=== PATIENT | female | born 1940 | race Two or more races ===

== ENCOUNTER 2020-04-11 16:07 | Inpatient (IN) | payer OTHER ==
[~2020-04-11] VITALS: Ht 167.6 cm; Wt 97.2 kg
[2020-04-11 18:00] LABS: Basophils # (auto) 0 10 ^3/uL (0-0.2); Eosinophils # (auto) 0 10 ^3/uL (0-0.8); Eosinophils % (auto) 0.1 % (0.0-7.0); Hemoglobin 8.2 g/dL (12.2-16.2); Lymphocytes # (auto) 0.3 10 ^3/uL (0.4-5.4); White Blood Cell 7.8 10^3/uL (4.4-10.8)
[2020-04-11 18:01] LABS: Basophils % (auto) 0.2 % (0.0-2.0); Hematocrit 24.8 % (36.0-46.0); Lymphocytes % (auto) 4.4 % (10.0-50.0); Mean Corpuscular Hemoglobin 31.2 pg (28.0-32.0); Mean Corpuscular Volume 94.5 fL (80.0-100.0); Monocytes # (auto) 0.4 10 ^3/uL (0-1.3); Monocytes % (auto) 5.5 % (0.0-12.0); Neutrophils % (auto) 89.8 % (37.0-80.0); Nucleated Red Blood Cells % 0.3 %; Platelet Count (auto) 131 10^3/uL (140-450); Red Blood Cells 2.63 10^6/uL (4.0-5.20); Red Cell Distribution Width 15.8 % (11.8-14.3)
[2020-04-11] MEDS ORDERED: NOREPINEPHRINE 8 MG/250ML KIT 250 ML IV ONE (18:02)
[2020-04-11 18:14] LABS: INR 1.5 (0.9-1.15); Partial Thromboplastin Time 27.3 sec (23.64-32.05)
[2020-04-11 18:17] LABS: Lactic Acid w/Reflex 3.9 mmol/L (0.4-2.0)
[2020-04-11 18:19] LABS: Albumin 2.3 g/dL (3.4-5.0); Anion Gap 10 (5-15); Blood Alcohol < 3.0 mg/dL (0-5); Blood Urea Nitrogen 36 mg/dL (7-18); Calcium 7.2 mg/dL (8.5-10.1); Carbon Dioxide 29 mmol/L (21-32); Chloride 99 mmol/L (98-107); Glucose 110 mg/dL (74-106); Potassium 4.8 mmol/L (3.5-5.1); Sodium 138 mmol/L (136-145)
[2020-04-11] MEDS: NOREPINEPHRINE 8 MG/250ML KIT 250 ML IV SCH (18:20)
[2020-04-11 18:28] LABS: Alanine Aminotransferase 98 U/L (13-56); Alkaline Phosphatase 61 U/L (45-117); Aspartate Aminotransferase 536 U/L (15-37); Bilirubin, Total 0.6 mg/dL (0.2-1.0); CRP High Sensitivity 4.85 mg/dL (< 0.3); GFR African American 16 mL/min; GFR Non-African American 13 mL/min; Lactate Dehydrogenase 553 U/L (84-246); Total Protein 5.5 g/dL (6.4-8.2)
[2020-04-11] MEDS ORDERED: VANCOMYCIN 1GM/250ML 250 ML IV ONE (19:30)
[2020-04-11] MEDS ORDERED: PIPERACILLIN-TAZOB 3.375GM 100 ML IV ONE (19:30)
[2020-04-11] MEDS ORDERED: HEPARIN SODIUM (PORCINE) 5000 UNITS/ML 1ML VIAL IV ONE (19:45)
[2020-04-11] MEDS ORDERED: NITROGLYCERIN 0.4 MG SL TAB SL PRN (20:00)
[2020-04-11] MEDS ORDERED: MORPHINE SULF INJ 2 MG/ML SYRINGE 1ML IV PRN (20:00)
[2020-04-11] MEDS: HEPARIN DRIP/D5W 100UNITS/ML 250 ML IV SCH (21:23)
[2020-04-11] MEDS: SODIUM CHLOR 0.9% PF (SALINE LOCK) 10ML VIAL/SYR IV SCH (22:06)
[2020-04-11] MEDS: ATORVASTATIN 20 MG TAB PO SCH (22:12)
[2020-04-12 00:35] LABS: Urine Bacteria FEW /hpf (None Seen); Urine Blood 3+ /uL (Negative); Urine Budding Yeast FEW /hpf (None Seen); Urine Hyaline Cast FEW /lpf (0 - 2); Urine Specific Gravity 1.013 (1.001-1.035); Urine WBC 393 /hpf (0 - 5); Urine WBC Clumps PRESENT /hpf (None Seen)
[2020-04-12 03:17] LABS: INR 1.42 (0.9-1.15)
[2020-04-12 03:24] LABS: Partial Thromboplastin Time 122.9 sec (23.64-32.05)
[2020-04-12 05:54] LABS: INR 1.35 (0.9-1.15); Partial Thromboplastin Time 38.5 sec (23.64-32.05)
[2020-04-12] MEDS: SODIUM CHLOR 0.9% PF (SALINE LOCK) 10ML VIAL/SYR IV SCH ×3 (06:10→22:32)
[2020-04-12] MEDS ORDERED: FAMOTIDINE INJECTION 40 MG in SODIUM CHL 0.9% 100 ML IV SCH (10:00)
[2020-04-12] MEDS ORDERED: FAMOTIDINE (10MG/ML) 2ML VL IV SCH (10:00)
[2020-04-12] MEDS ORDERED: CLOPIDOGREL BISULFATE 75 MG TAB PO SCH (10:00)
[2020-04-12] MEDS ORDERED: ASPirin 81 mg TAB PO SCH (10:00)
[2020-04-12] MEDS: FAMOTIDINE (10MG/ML) 2ML VL IV SCH (10:33)
[2020-04-12] MEDS ORDERED: CLOPIDOGREL BISULFATE 75 MG TAB PO STA (10:53)
[2020-04-12] MEDS ORDERED: CLOPIDOGREL BISULFATE 75 MG TAB ONE (11:15)
[2020-04-12] MEDS ORDERED: cefTRIAXone 1GM/50ML D5W 50 ML IV ONE (11:15)
[2020-04-12] MEDS ORDERED: traMADol HCL 50 MG TAB ONE (11:16)
[2020-04-12] MEDS: traMADol HCL 50 MG TAB PO PRN (11:50)
[2020-04-12 13:51] LABS: Basophils # (auto) 0 10 ^3/uL (0-0.2); Basophils % (auto) 0.3 % (0.0-2.0); Eosinophils # (auto) 0.1 10 ^3/uL (0-0.8); Eosinophils % (auto) 1.1 % (0.0-7.0); Hematocrit 26.5 % (36.0-46.0); Hemoglobin 8.7 g/dL (12.2-16.2); Lymphocytes # (auto) 0.5 10 ^3/uL (0.4-5.4); Lymphocytes % (auto) 4.5 % (10.0-50.0); Mean Corpuscular Hemoglobin 31.3 pg (28.0-32.0); Mean Corpuscular Hgb Conc. 32.7 g/dL (32.0-36.0); Mean Corpuscular Volume 95.7 fL (80.0-100.0); Monocytes # (auto) 0.7 10 ^3/uL (0-1.3); Monocytes % (auto) 6.3 % (0.0-12.0); Neutrophils # (auto) 9.2 10 ^3/uL (1.6-8.6); Neutrophils % (auto) 87.8 % (37.0-80.0); Nucleated Red Blood Cells % 0.5 %; Platelet Count (auto) 178 10^3/uL (140-450); Red Blood Cells 2.77 10^6/uL (4.0-5.20); Red Cell Distribution Width 16.5 % (11.8-14.3); White Blood Cell 10.4 10^3/uL (4.4-10.8)
[2020-04-12 14:06] LABS: Albumin 2.3 g/dL (3.4-5.0); Calcium 7.3 mg/dL (8.5-10.1); INR 1.33 (0.9-1.15); Partial Thromboplastin Time 26.4 sec (23.64-32.05); Potassium 4.2 mmol/L (3.5-5.1)
[2020-04-12 14:14] LABS: BUN/Creatinine Ratio 11.9; Bilirubin, Total 0.4 mg/dL (0.2-1.0); Total Protein 5.6 g/dL (6.4-8.2)
[2020-04-12] MEDS ORDERED: HEPARIN SODIUM (PORCINE) 5000 UNITS/ML 1ML VIAL ONE (14:22)
[2020-04-12] MEDS ORDERED: HEPARIN SODIUM (PORCINE) 5000 UNITS/ML 1ML VIAL IV ONE (14:30)
[2020-04-12] MEDS: HEPARIN DRIP/D5W 100UNITS/ML 250 ML IV SCH (14:33)
[2020-04-12] MEDS ORDERED: HEPARIN DRIP/D5W 100UNITS/ML 250 ML IV SCH (14:45)
[2020-04-12] MEDS: NOREPINEPHRINE 8 MG/250ML KIT 250 ML IV SCH (17:59)
[2020-04-12] MEDS: ATORVASTATIN 20 MG TAB PO SCH (22:32)
[2020-04-13 00:29] LABS: INR 1.28 (0.9-1.15)
[2020-04-13 00:38] LABS: Partial Thromboplastin Time 71.5 sec (23.64-32.05)
[2020-04-13] MEDS: NOREPINEPHRINE 8 MG/250ML KIT 250 ML IV SCH (01:45)
[2020-04-13] MEDS: traMADol HCL 50 MG TAB PO PRN (04:22)
[2020-04-13] MEDS ORDERED: OMEPRAZOLE 20MG/10ML ORAL SUSP GT ONE (04:30)
[2020-04-13 05:41] LABS: Hematocrit 29.8 % (36.0-46.0); Hemoglobin 9.6 g/dL (12.2-16.2); Mean Corpuscular Hemoglobin 30.7 pg (28.0-32.0); Mean Corpuscular Hgb Conc. 32.1 g/dL (32.0-36.0); Mean Corpuscular Volume 95.9 fL (80.0-100.0); Platelet Count (auto) 162 10^3/uL (140-450); Red Blood Cells 3.11 10^6/uL (4.0-5.20); Red Cell Distribution Width 16.8 % (11.8-14.3)
[2020-04-13 05:49] LABS: Basophils % (manual) 0 (0.0-2.0); Blast Cells 0; Eosinophils % (manual) 0 (0-7); Myelocytes % 0; Promyelocytes % 0; Reactive Lymphocytes 0
[2020-04-13 05:55] LABS: Potassium 4.3 mmol/L (3.5-5.1)
[2020-04-13 05:56] LABS: INR 1.22 (0.9-1.15); Partial Thromboplastin Time 57.3 sec (23.64-32.05)
[2020-04-13 05:59] LABS: Albumin 2.6 g/dL (3.4-5.0); BUN/Creatinine Ratio 10.8; Calcium 7.6 mg/dL (8.5-10.1)
[2020-04-13] MEDS: SODIUM CHLOR 0.9% PF (SALINE LOCK) 10ML VIAL/SYR IV SCH ×3 (06:00→21:27)
[2020-04-13 06:01] LABS: Bilirubin, Total 0.6 mg/dL (0.2-1.0); Total Protein 6.2 g/dL (6.4-8.2)
[2020-04-13 06:29] LABS: Band Neutrophils % (manual) 7; Lymphocytes % (manual) 7 (10.0-50.0); Metamyelocytes % 1; Monocytes % (manual) 1 (0-12)
--- NOTE | 2020-04-13 08:54 | NUR ---
WOUND CARE NOTE: ORDERED [facility] VCP 500 AIR BED FOR PATIENT. PATIENT TO BE PLACED, PENDING DELIVERY. PATIENT NOTED TO HAVE SACRAL WOUND UPON ADMIT. WOUND PHOTO TAKEN AT THAT TIME BY BEDSIDE NURSE FOR REFERENCE. WILL SEE PATIENT FOR SKIN INTEGRITY LATER THIS AM.
[2020-04-13] MEDS ORDERED: ASPirin 81 mg TAB PO SCH (10:00)
[2020-04-13] MEDS: FAMOTIDINE (10MG/ML) 2ML VL IV SCH (11:15)
[2020-04-13] MEDS: cefTRIAXone 1GM/50ML D5W 50 ML IV SCH (11:15)
[2020-04-13] MEDS: CLOPIDOGREL BISULFATE 75 MG TAB PO SCH (11:47)
[2020-04-13 12:04] LABS: Basophils # (auto) 0 10 ^3/uL (0-0.2); Eosinophils # (auto) 0.1 10 ^3/uL (0-0.8); Hemoglobin 8.4 g/dL (12.2-16.2); Lymphocytes # (auto) 0.4 10 ^3/uL (0.4-5.4); Neutrophils # (auto) 9.2 10 ^3/uL (1.6-8.6); White Blood Cell 10.2 10^3/uL (4.4-10.8)
[2020-04-13 12:07] LABS: Basophils % (auto) 0.2 % (0.0-2.0); Eosinophils % (auto) 1.1 % (0.0-7.0); Hematocrit 25.6 % (36.0-46.0); Mean Corpuscular Hemoglobin 31.3 pg (28.0-32.0); Mean Corpuscular Hgb Conc. 32.9 g/dL (32.0-36.0); Mean Corpuscular Volume 95.3 fL (80.0-100.0); Monocytes # (auto) 0.4 10 ^3/uL (0-1.3); Monocytes % (auto) 4.4 % (0.0-12.0); Neutrophils % (auto) 90.3 % (37.0-80.0); Nucleated Red Blood Cells % 0.4 %; Platelet Count (auto) 135 10^3/uL (140-450); Red Blood Cells 2.68 10^6/uL (4.0-5.20); Red Cell Distribution Width 16.6 % (11.8-14.3)
--- NOTE | 2020-04-13 12:20 | NUR ---
WOUND CARE NOTE: IN TO SEE PATIENT AT THIS TIME PER WOUND CARE CONSULT REQUEST. PATIENT RECENTLY ADMITTED TO [facility] WITH DIAGNOSIS OF RESPIRATORY FAILURE. SHE WAS NOTED TO HAVE A WOUND TO SACRUM, WOUND PHOTO TAKEN BY BEDSIDE NURSE FOR REFERENCE. PATIENT IS IN ER BED 16. SHE IS AWAKE, ALERT, CONFUSED. SHE IS MAX ASSIST FOR HER ADL'S, ASSESSED AT 11 FOR HER DSEIREE SCORE, CURRENTLY. PATIENT TURNED TO THE RIGHT SIDE. SHE IS NOTED TO HAVE A STAGE 3 PRESSURE INJURY TO INTRAGLUTEAL FOLD OF SACRUM, WITH MASD TO BILATERAL BUTTOCKS, PERINEUM. APPLIED MOISTURE BARRIER CREAM TO MASD, APPLIED THERAHONEY, OPTIFOAM GENTLE SACRAL DRESSING TO WOUND. BILATERAL HEELS ARE RED, BUT BLANCHING. SHE WOULD BENEFIT FROM SABAS BOOTS TO OFFLOAD PRESSURE AT THIS TIME. PATIENT REPOSITIONED ONTO RIGHT SIDE, REDISTRIBUTING PRESSURE POINTS WITH PILLOWS. RECOMMEND: FREQUENT TURN SCHEDULE Q 2 HOURS, PRN CONDITION PERMITS, WITH PRESSURE REDISTRIBUTION UTILIZING PILLOWS/WEDGES, SABAS BOOTS, SPECIALTY AIR MATTRESS, DAILY/PRN DRESSING CHANGE TO SACRAL WOUND, BID/PRN APPLICATIONS WITH MOISTURE BARRIER CREAM TO MASD OF PERINEUM/BILATERAL BUTTOCKS, DIETARY CONSULT, CONTINUED MONITORING BY WOUND CARE TEAM. Addendum: 04/13/20 at 1936 by Peyton Jay RN Amended: Links added.
[2020-04-13 12:22] LABS: Albumin 2.2 g/dL (3.4-5.0); Calcium 7.2 mg/dL (8.5-10.1); Potassium 4.4 mmol/L (3.5-5.1)
[2020-04-13 12:26] LABS: BUN/Creatinine Ratio 11.1; Bilirubin, Total 0.4 mg/dL (0.2-1.0); Total Protein 5.5 g/dL (6.4-8.2)
[2020-04-13 12:53] LABS: INR 1.23 (0.9-1.15); Partial Thromboplastin Time 54.5 sec (23.64-32.05)
[2020-04-13] MEDS: HEPARIN DRIP/D5W 100UNITS/ML 250 ML IV SCH (13:00)
[2020-04-13] MEDS: FLUCONAZOLE 200MG/100ML 100 ML IV SCH ×2 (14:39→15:44)
--- NOTE | 2020-04-13 19:00 | NUR ---
Telemetry admit from ER DIANA GARCIA admitted to Telemetry unit after SBAR received. Patient oriented to BERNABE CANCINO, RN primary RN, unit, room, bed 293B, and unit policies regarding patient care and visiting hours. Patient now on continuous telemetry monitoring, tele box # 75 and telemetry reading on arrival to unit is sinus rhythm. Patient placed on bedside oxygen 2 LPM, weighed by bedscale and encouraged to call if they need something. All questions and concerns addressed, patient verbalized understanding. Patient is confused and needs continuous re-orientation. Call to patients daughter to update on plan of care.
--- NOTE | 2020-04-13 19:45 | NUR ---
Opening Shift Note Assumed care of patient, asleep at this time, respirations even and unlabored. No S/S of pain. Bed in lowest and locked position, call light within reach, will continue to monitor
[2020-04-13 19:58] LABS: INR 1.19 (0.9-1.15)
[2020-04-13 20:00] VITALS: BP 120/56
--- NOTE | 2020-04-13 20:17 | NUR ---
APTT Received a critical APTT of 73.7. No changes in Heparin drip, maintained at 12 ml/hr per protocol, will continue to monitor
[2020-04-13 20:19] LABS: Partial Thromboplastin Time 73.7 sec (23.64-32.05)
--- NOTE | 2020-04-13 20:35 | NUR ---
Spoke to patient's daughter Peyton and updated on patient's status
[2020-04-13] MEDS: ATORVASTATIN 20 MG TAB PO SCH (21:27)
[2020-04-13 22:00] VITALS: BP 120/56
[2020-04-13 22:37] VITALS: BP 120/56
[2020-04-14 02:07] LABS: INR 1.18 (0.9-1.15)
--- NOTE | 2020-04-14 02:37 | NUR ---
APTT Received a critical APTT of 80.1. Decreased Heparin drip to 10 ml/hr per protocol, will continue to monitor
[2020-04-14 02:40] LABS: Partial Thromboplastin Time 80.1 sec (23.64-32.05)
--- NOTE | 2020-04-14 04:00 | NUR ---
Patient woke up confused and pulled out IV and dressing on left chest pacemaker. Reoriented to time, place and situation and instructed her on POC. Patient unable to comprehend at this time and continue to pull out ruiz as well. Placed mittens on both hands but patient started to become aggressive. Removed mittens at this time and able to calm patient down. SHANNON Carranza made aware of patient's situation and the possible need of a sitter. DENNISE Chow stayed with the patient for now, will closely monitor patient.
--- NOTE | 2020-04-14 06:06 | NUR ---
MRSA swab done per protocol, sent to lab
[2020-04-14] MEDS: SODIUM CHLOR 0.9% PF (SALINE LOCK) 10ML VIAL/SYR IV SCH ×3 (06:11→21:14)
[2020-04-14 06:27] VITALS: BP 124/65
[2020-04-14] MEDS ORDERED: SODIUM CHL 0.9% 1000 ML BAG XX ONE (07:00)
--- NOTE | 2020-04-14 07:30 | NUR ---
Opening Shift Note Assumed care of patient, awake and alert but confused, requiring frequent re-orientation to place, situation and time. No S/S of distress/SOB or pain on 2 LPM via nasal cannula, per report patient desaturates on room air. Instructed on POC and to call for assist PRN, will continue to monitor for changes Q1hr and PRN. Bed in low and locked position, rails up x2 no-slip socks on. Repositioned for skin integrity and comfort. Sitter at bedside for safety, patient is actively attempting to remove all lines and dressings overnight, will continue to monitor activity.
--- NOTE | 2020-04-14 07:55 | NUR ---
DIALYSIS NURSE AT BEDSIDE
[2020-04-14 08:32] LABS: Hematocrit 24.7 % (36.0-46.0); Hemoglobin 8.2 g/dL (12.2-16.2); Red Blood Cells 2.64 10^6/uL (4.0-5.20)
[2020-04-14 08:35] LABS: Mean Corpuscular Hgb Conc. 33.1 g/dL (32.0-36.0); Mean Corpuscular Volume 93.7 fL (80.0-100.0); Platelet Count (auto) 83 10^3/uL (140-450); Red Cell Distribution Width 16.4 % (11.8-14.3)
[2020-04-14 08:42] LABS: Albumin 2.1 g/dL (3.4-5.0); Calcium 7.1 mg/dL (8.5-10.1); Potassium 4.5 mmol/L (3.5-5.1)
[2020-04-14 08:45] LABS: BUN/Creatinine Ratio 10.8; Bilirubin, Total 0.4 mg/dL (0.2-1.0); Total Protein 5.4 g/dL (6.4-8.2)
[2020-04-14 08:50] LABS: White Blood Cell 1.4 10^3/uL (4.4-10.8)
[2020-04-14 08:52] LABS: Basophils % (manual) 0 (0.0-2.0); Blast Cells 0; Promyelocytes % 0; Reactive Lymphocytes 0
--- NOTE | 2020-04-14 08:54 | NUR ---
CRITICAL RESULT WBC 1.4, DOWN FROM 10.2 YESTERDAY, PAGE TO DR PITT TO NOTIFY.
[2020-04-14 09:00] VITALS: BP 140/52
[2020-04-14 09:01] LABS: INR 1.18 (0.9-1.15); Partial Thromboplastin Time 46.8 sec (23.64-32.05)
--- NOTE | 2020-04-14 09:06 | NUR ---
Weekend paleontological helper-I did not receive a page regarding the social service consult (04/12) for this patient.
[2020-04-14] MEDS: HEPARIN DRIP/D5W 100UNITS/ML 250 ML IV SCH (09:18)
[2020-04-14 09:53] LABS: Band Neutrophils % (manual) 1; Eosinophils % (manual) 2 (0-7); Lymphocytes % (manual) 17 (10.0-50.0); Metamyelocytes % 1; Monocytes % (manual) 7 (0-12); Myelocytes % 2
[2020-04-14] MEDS: FAMOTIDINE (10MG/ML) 2ML VL IV SCH (10:17)
--- NOTE | 2020-04-14 10:26 | NUR ---
DR PITT AT BEDSIDE RECEIVED ORDERS FOR AGITATION
[2020-04-14] MEDS: traMADol HCL 50 MG TAB PO PRN (10:29)
[2020-04-14] MEDS ORDERED: HALOPERIDOL LACTATE 5 MG/ML INJ VIAL IM PRN (10:30)
[2020-04-14] MEDS ORDERED: TIZA4CAP PO (10:41)
[2020-04-14] MEDS ORDERED: TRAM50TA2 PO (10:41)
[2020-04-14] MEDS ORDERED: GABA100C9 PO (10:42)
[2020-04-14] MEDS ORDERED: QUET25TA37 PO (10:42)
[2020-04-14] MEDS ORDERED: CLOP75TA41 PO (10:44)
[2020-04-14] MEDS ORDERED: ROSU5TAB5 PO (10:44)
[2020-04-14] MEDS ORDERED: LOSA25TA8 PO (10:44)
[2020-04-14] MEDS: HALOPERIDOL 1 MG TAB PO PRN (11:39)
[2020-04-14] MEDS: CLOPIDOGREL BISULFATE 75 MG TAB PO SCH (11:39)
--- NOTE | 2020-04-14 11:45 | NUR ---
DIALYSIS COMPLETED 2L REMOVED, LAST BP 146/52 HR 84 PATIENT TOLERATED IT WELL.
[2020-04-14] MEDS: FLUCONAZOLE 200MG/100ML 100 ML IV SCH (11:55)
--- NOTE | 2020-04-14 12:04 | NUR ---
DR SANCHEZ AT BEDSIDE
[2020-04-14 13:00] VITALS: BP 154/63
[2020-04-14] MEDS: cefTRIAXone 1GM/50ML D5W 50 ML IV SCH (13:46)
[2020-04-14 14:23] LABS: INR 1.21 (0.9-1.15)
[2020-04-14 14:27] LABS: Partial Thromboplastin Time 90.5 sec (23.64-32.05)
--- NOTE | 2020-04-14 14:33 | NUR ---
CRITICAL LAB PTT 90.5, WILL ADD STAT REDRAW TO CONFIRM VALUE.
--- NOTE | 2020-04-14 15:19 | NUR ---
Nutrition Consult/assessment Notes please see attached link for complete assessment Est Energy needs ABW 85 k-2295kcals (25-27 kcal/kgABW), Est Protein needs: 102-110 gms/day (1.2-1.3 gm/kgABW r/t HD). Will continue to monitor and reassess prn. Addendum: 04/14/20 at [address] Amended: Links added.
[2020-04-14 16:05] LABS: Basophils # (auto) 0 10 ^3/uL (0-0.2); Basophils % (auto) 0.2 % (0.0-2.0); Eosinophils # (auto) 0.1 10 ^3/uL (0-0.8); Lymphocytes # (auto) 0.2 10 ^3/uL (0.4-5.4); Monocytes # (auto) 0.4 10 ^3/uL (0-1.3); Platelet Count (auto) 48 10^3/uL (140-450)
[2020-04-14 16:07] LABS: Eosinophils % (auto) 0.6 % (0.0-7.0); Lymphocytes % (auto) 2.3 % (10.0-50.0); Mean Corpuscular Hemoglobin 31.1 pg (28.0-32.0); Mean Corpuscular Hgb Conc. 33.5 g/dL (32.0-36.0); Mean Corpuscular Volume 92.8 fL (80.0-100.0); Monocytes % (auto) 4.5 % (0.0-12.0); Neutrophils # (auto) 8.6 10 ^3/uL (1.6-8.6); Neutrophils % (auto) 92.4 % (37.0-80.0); Nucleated Red Blood Cells % 0.2 %; Red Blood Cells 2.91 10^6/uL (4.0-5.20); Red Cell Distribution Width 15.9 % (11.8-14.3); White Blood Cell 9.3 10^3/uL (4.4-10.8)
[2020-04-14 16:18] LABS: Albumin 2.1 g/dL (3.4-5.0)
[2020-04-14 16:19] LABS: INR 1.19 (0.9-1.15); Partial Thromboplastin Time 39.3 sec (23.64-32.05)
[2020-04-14 16:22] LABS: BUN/Creatinine Ratio 9.4; Bilirubin, Total 0.4 mg/dL (0.2-1.0); Total Protein 5.5 g/dL (6.4-8.2)
--- NOTE | 2020-04-14 16:45 | NUR ---
1630 04/14/20 I faxed transfer order and Notice Regarding Post Stabilization to [facility]-documents scanned into [employer]. I faxed today's MD progress notes, labs, vitals and medication list to [facility]. I called [facility] and spoke with knowledge analyst Carleen-I let her know that patient is stable for transfer to [facility]-she said the assigned gearcase assembler today is Baylee-she is not available right now. Per Carleen this is a [facility] member and they have no beds available right now. She will have Baylee contact me regarding authorization request.
[2020-04-14 17:00] VITALS: BP 154/62
--- NOTE | 2020-04-14 19:05 | NUR ---
Opening Shift Note Assumed care of patient, awake and alert. No S/S of distress/SOB or pain. Respirations clear, equal and unlabored. Instructed on POC and to call for assist PRN, will continue to monitor for changes Q1hr and PRN. Bed locked in lowest position, HOB elevated at least 30 degrees, side rails up x 2 and call light is within each. Addendum: 04/14/20 at 1944 by TRISHA PEREIRA RN RN MITTENS IN PLACE ON BOTH HANDS, SITTER PRESENT IN ROOM AND SIDE RAILS UP X 3, NOT X 2
[2020-04-14] MEDS ORDERED: EPOETIN ALFA 10,000 UNIT/1 ML VIAL SC ONE (21:00)
[2020-04-14] MEDS: ATORVASTATIN 20 MG TAB PO SCH (21:07)
[2020-04-14 21:51] VITALS: BP 140/63
[2020-04-14 23:49] LABS: INR 1.17 (0.9-1.15); Partial Thromboplastin Time 51.2 sec (23.64-32.05)
--- NOTE | 2020-04-15 00:21 | NUR ---
PTT RESULT Latest PTT value of 51.2. No change in rate of heparin drip at this time. Heparin drip rate continued at 11ml/hr.
[2020-04-15 04:45] VITALS: BP 145/54
[2020-04-15 05:55] LABS: Hemoglobin 8.4 g/dL (12.2-16.2)
[2020-04-15 05:59] LABS: Hematocrit 24.9 % (36.0-46.0); Mean Corpuscular Hemoglobin 31.2 pg (28.0-32.0); Mean Corpuscular Hgb Conc. 33.5 g/dL (32.0-36.0); Platelet Count (auto) 64 10^3/uL (140-450); Red Blood Cells 2.68 10^6/uL (4.0-5.20); Red Cell Distribution Width 16.3 % (11.8-14.3); White Blood Cell 7.2 10^3/uL (4.4-10.8)
[2020-04-15] MEDS: SODIUM CHLOR 0.9% PF (SALINE LOCK) 10ML VIAL/SYR IV SCH ×3 (06:07→22:23)
[2020-04-15 06:11] LABS: INR 1.14 (0.9-1.15); Partial Thromboplastin Time 54.6 sec (23.64-32.05)
[2020-04-15 06:14] LABS: Band Neutrophils % (manual) 0; Basophils % (manual) 0 (0.0-2.0); Blast Cells 0; Metamyelocytes % 0; Promyelocytes % 0; Reactive Lymphocytes 0
[2020-04-15] MEDS: HEPARIN DRIP/D5W 100UNITS/ML 250 ML IV SCH ×3 (06:34→19:00)
[2020-04-15 07:03] LABS: Eosinophils % (manual) 3 (0-7); Lymphocytes % (manual) 1 (10.0-50.0); Monocytes % (manual) 4 (0-12); Myelocytes % 2
--- NOTE | 2020-04-15 07:27 | NUR ---
CLOSING SHIFT NOTE ENDORSED CARE TO DAY SHIFT RN
[2020-04-15 08:00] VITALS: BP 155/64
[2020-04-15 09:00] VITALS: BP 155/64
[2020-04-15] MEDS: cefTRIAXone 1GM/50ML D5W 50 ML IV SCH (10:46)
[2020-04-15] MEDS: FLUCONAZOLE 200MG/100ML 100 ML IV SCH (10:46)
[2020-04-15] MEDS: CLOPIDOGREL BISULFATE 75 MG TAB PO SCH (10:47)
[2020-04-15] MEDS: FAMOTIDINE (10MG/ML) 2ML VL IV SCH (10:47)
--- NOTE | 2020-04-15 12:00 | NUR ---
PTT RESULT 43.0, NO BOLUS, RATE INCREASE 2ML/HR. HEPARIN IS NOW INFUSING AT 13ML/HR.
[2020-04-15 12:47] LABS: INR 1.08 (0.9-1.15)
[2020-04-15 13:00] VITALS: BP 128/54
--- NOTE | 2020-04-15 16:20 | NUR ---
assessment Patient is a 79 year female who is confused. Per patients bambi Alizajack prior to admission patient lived home with her in [place] and was independent. Patient was brought here to her daughters house when she became ill. Per Lorin patient has no DME or oxygen at home. Patients PCP is Dr Kowalski at the [facility] in [place]. Per Lorjack patient will need SNF for rehab prior to returning home. Per Lorjack once patient is stronger she will move patient and her to assisted living. Patient has an advanced directive and Williamin is POA. I informed Baldev I will continue to monitor and follow up as appropriate. Baldev verbalized understanding and agreed to SNF placement on discharge. Addendum: 04/15/20 at 1629 by Maria Luisa ERICKSON Amended: Links added.
--- NOTE | 2020-04-15 16:42 | NUR ---
1630 04/15/20 I called [facility] and spoke with business risk analyst Eva-requested to speak with nurse case management regarding transfer order and continued inpatient authorization. Per Eva the assigned nurse case management is Baylee and she is not available right now. Per Eva she is not able to tell me whether or not they have any beds available. Per Eva they did receive transfer order and today's clinical information. Per Eva nurse case management has to finish reviewing information before further authorization can be given
[2020-04-15 17:00] VITALS: BP 152/65
[2020-04-15 17:57] LABS: INR 1.08 (0.9-1.15); Partial Thromboplastin Time 50.2 sec (23.64-32.05)
--- NOTE | 2020-04-15 18:00 | NUR ---
CALLED DR. SCHNEIDER PER DR. MUHAMMAD REGARDING HEPARIN DRIP, ONE MESSAGE WAS LEFT, AWAITING RESPONSE.
--- NOTE | 2020-04-15 20:06 | NUR ---
RECEIVED CALL FROM PHARMACY TO STOP THE HEPARIN DRIP 30 MINUTES BEFORE GIVING TH MARQUISE BERTRAND.
[2020-04-15] MEDS: HALOPERIDOL 1 MG TAB PO PRN (20:28)
[2020-04-15 22:00] VITALS: BP 160/62
[2020-04-15] MEDS: ATORVASTATIN 20 MG TAB PO SCH (22:23)
[2020-04-15] MEDS: APIXABAN 5 MG TAB PO SCH (22:24)
[2020-04-16] MEDS: traMADol HCL 50 MG TAB PO PRN ×3 (01:44→21:19)
[2020-04-16 05:00] VITALS: BP 160/69
[2020-04-16] MEDS: SODIUM CHLOR 0.9% PF (SALINE LOCK) 10ML VIAL/SYR IV SCH ×3 (05:43→21:41)
[2020-04-16 07:44] LABS: INR 1.13 (0.9-1.15); Partial Thromboplastin Time 36.9 sec (23.64-32.05)
[2020-04-16 08:30] VITALS: BP 140/66
[2020-04-16] MEDS: cefTRIAXone 1GM/50ML D5W 50 ML IV SCH (09:00)
[2020-04-16] MEDS: FAMOTIDINE (10MG/ML) 2ML VL IV SCH (10:00)
[2020-04-16] MEDS: FLUCONAZOLE 200MG/100ML 100 ML IV SCH (10:00)
[2020-04-16] MEDS: CLOPIDOGREL BISULFATE 75 MG TAB PO SCH (10:55)
[2020-04-16] MEDS: APIXABAN 5 MG TAB PO SCH (10:55)
[2020-04-16 13:21] VITALS: BP 136/69
--- NOTE | 2020-04-16 15:19 | NUR ---
re-assessment Notified Dr Soriano that [facility] has not found SNF for patient. Per PT evaluation patient is able to ambulate 20 feet. Patients daughter is working with [facility] for placement. Notified Dr Soriano to sign assisted living forms. Per Dr Soriano he will sign when he comes to the floor. Addendum: 04/18/20 at 1025 by Maria Luisa ERICKSON Amended: Links added.
--- NOTE | 2020-04-16 20:58 | NUR ---
1899. REPORT OBTAINED ON PATIENT. CARE RESUMED.
--- NOTE | 2020-04-16 20:59 | NUR ---
1930. PATIENT MET IN HER ROOM IN BED. APPEARS CONFUSED AND DISORIENTED. ASKING TO GO HOME TONIGHT. DENIES PAIN. SERRANO CATHETER IN PLACE.OBSERVATION AND CARE CONTINUES.
[2020-04-16] MEDS: HALOPERIDOL 1 MG TAB PO PRN (21:18)
--- NOTE | 2020-04-16 21:20 | NUR ---
2118. MEDICATED FOR PAIN AND INCREASING AGITATION.
[2020-04-16 21:35] VITALS: BP 181/82
[2020-04-16] MEDS: ATORVASTATIN 20 MG TAB PO SCH (21:41)
[2020-04-17 04:42] VITALS: BP 154/48
[2020-04-17] MEDS: SODIUM CHLOR 0.9% PF (SALINE LOCK) 10ML VIAL/SYR IV SCH ×3 (05:43→22:33)
[2020-04-17] MEDS: cefTRIAXone 1GM/50ML D5W 50 ML IV SCH (08:26)
[2020-04-17] MEDS: FAMOTIDINE (10MG/ML) 2ML VL IV SCH (08:26)
[2020-04-17] MEDS: APIXABAN 5 MG TAB PO SCH ×2 (08:26→22:34)
[2020-04-17] MEDS: FLUCONAZOLE 200MG/100ML 100 ML IV SCH (08:27)
[2020-04-17 08:32] VITALS: BP 187/70
[2020-04-17 12:32] VITALS: BP 165/81
[2020-04-17 13:00] VITALS: BP 171/62
[2020-04-17] MEDS: METOPROLOL TARTRATE 1MG/1ML-5ML VIAL IV PRN ×2 (13:00→18:22)
[2020-04-17] MEDS: traMADol HCL 50 MG TAB PO PRN ×2 (13:50→18:22)
[2020-04-17] MEDS ORDERED: APIX5TAB PO (14:43)
[2020-04-17] MEDS ORDERED: FLUC200T35 PO (14:43)
--- NOTE | 2020-04-17 14:47 | NUR ---
Nutrition Followup Note Wt 102.1kg Pt was with HD nurse at time of round receiving HD. Pt with no signs of distress per RN note. Pt with inadequate po intake aeb pt with an avg po intake of 61% x 3 days per RN note. Will continue to monitor po intake and need for oral supplements Est Energy needs ABW 85 k-2295kcals (25-27 kcal/kgABW), Est Protein needs: 102-110 gms/day (1.2-1.3 gm/kgABW r/t HD). Will continue to monitor and reassess prn. Labs: BUN 39H, Creat 4.14H, Alb 2.1L, GLUC 169H, CA 7.0L BM: Pt with 1 BM 04/17 per RN note Skin: Bs 20 low risk, full details in animal care specialist note Altered nutrition related lab values r.t current chronic medical condition aeb elev RFT severe hypoalb Decreased nutrient needs r/t adiposity aeb pt`s high BMI of 39.7 kgm2 Inadequate PO intake r/t current mental condition aeb pt`s recorded PO < 75% Comments 1) consider renal std cardiac diet 2) consider prostat 1 packet daily 3) consider nephrovite and Vit C bid 4) refer to OPD dietitian on DC 5) continue current plan of care Expected Outcomes/Goals: pt will have improved labs pt will have better healing skin F/U MOD 3-5 DAYS
--- NOTE | 2020-04-17 14:48 | NUR ---
AGITATION: PATIENT INCREASING IN AGITATION. PATIENT ATTEMPTING TO GET OUT OF BED STATING, "I NEED TO GET OUT OF THE BOX, THIS BED IS CARDBOARD AND I NEED TO MOVE MY LEGS." PATIENT UPSET ABOUT SITUATION THIS RN ATTEMPTING TO ORIENT PATIENT AND DE-ESCALATE. THIS RN SUCCESSFUL, AND WILL CONTINUE TO MONITOR.
[2020-04-17] MEDS: HALOPERIDOL 1 MG TAB PO PRN (14:53)
--- NOTE | 2020-04-17 15:15 | NUR ---
PT IS TO CONFUSED TO SAFELY PARTICIPATE IN P.T. TODAY.
--- NOTE | 2020-04-17 19:11 | NUR ---
CARE ENDORSED TO NOC RN.
--- NOTE | 2020-04-17 19:15 | NUR ---
Opening Shift Note Assumed care of patient, awake and alert. No S/S of distress/SOB or pain. Respirations clear, regular, and non-labored. Bed locked in lowest position, HOB elevated at least 30 degrees, side rails up x 2, and call light is within each. Suarez is patent and below the bladder level. Instructed on POC and to call for assistance as needed. Will continue to monitor for changes Q1hr and PRN.
[2020-04-17 20:00] VITALS: BP 167/71
[2020-04-17] MEDS ORDERED: EPOETIN ALFA 10,000 UNIT/1 ML VIAL IV ONE (21:00)
[2020-04-17 22:18] VITALS: BP 167/76
[2020-04-17] MEDS: ATORVASTATIN 20 MG TAB PO SCH (22:34)
[2020-04-18] MEDS: METOPROLOL TARTRATE 1MG/1ML-5ML VIAL IV PRN (05:42)
[2020-04-18 05:46] VITALS: BP 157/69
[2020-04-18] MEDS: SODIUM CHLOR 0.9% PF (SALINE LOCK) 10ML VIAL/SYR IV SCH ×3 (06:00→21:52)
[2020-04-18 08:30] VITALS: BP 145/52
--- NOTE | 2020-04-18 09:00 | NUR ---
re-assessment Assisted Living medical forms has been sent to Nadia from [facility]. Per Nadia they need a recent Covid test on patient. Dr Soriano has been notified. Addendum: 04/18/20 at 1025 by Maria Luisa ERICKSON Amended: Links added.
[2020-04-18] MEDS ORDERED: OXYTOCIN 10UNIT/ML 1ML VIAL ONE (09:31)
[2020-04-18] MEDS: CLOPIDOGREL BISULFATE 75 MG TAB PO SCH (09:37)
[2020-04-18] MEDS: cefTRIAXone 1GM/50ML D5W 50 ML IV SCH (09:37)
[2020-04-18] MEDS: FLUCONAZOLE 200MG/100ML 100 ML IV SCH (09:38)
[2020-04-18] MEDS: APIXABAN 5 MG TAB PO SCH ×2 (09:38→21:52)
[2020-04-18] MEDS: FAMOTIDINE (10MG/ML) 2ML VL IV SCH (09:38)
--- NOTE | 2020-04-18 10:23 | NUR ---
re-assessment Dr Soriano has signed medication orders and he has informed me the Covid test should be here within a few hours. Waiting on Covid test now. Delay in discharge is due to no covid test available. Addendum: 04/18/20 at 1025 by Maria Luisa ERICKSON Amended: Links added.
[2020-04-18] MEDS ORDERED: ONDA-144 PO (10:51)
--- NOTE | 2020-04-18 15:31 | NUR ---
WOUND PHOTO TAKEN.
[2020-04-18 15:55] VITALS: BP 145/52
[2020-04-18 17:25] VITALS: BP 151/70
--- NOTE | 2020-04-18 17:46 | NUR ---
COVID TEST RESULT FAXED TO [facility] AND [facility].
--- NOTE | 2020-04-18 17:59 | NUR ---
SPOKE WITH JULIETA WELCH, MADE AWARE I FAXED THE NEGATIVE COVID TEST, SHE SAID THAT IT WILL BE FINALIZED TOMORROW BECAUSE [employer] CREST TRAIN GATEMAN ALREADY LEFT AND DAUGHTER NEEDS TO DEPOSIT AND SIGN A CONTRACT. Addendum: 04/18/20 at 1805 by Ladonna Hernandez RN CHARGE NURSE KABA MADE AWARE.
[2020-04-18] MEDS: traMADol HCL 50 MG TAB PO PRN (19:14)
--- NOTE | 2020-04-18 19:20 | NUR ---
Opening Shift Note Assumed care of patient. Patent is awake, alert, and oriented X 1. No S/S of respiratory distress or pain. Pt s on 2 LPM O2 via NC. Respirations are regular and non-labored. Bed locked in lowest position, HOB elevated, side rails up x 2, and call light is within each. Suarez is patent and below the bladder level. Instructed on POC and to call for assistance as needed. Patient verbalized understanding. Reinforcement and reorientation needed. Will continue to monitor for changes Q1hr and PRN.
[2020-04-18 20:00] VITALS: BP 148/64
[2020-04-18] MEDS: ATORVASTATIN 20 MG TAB PO SCH (21:51)
[2020-04-18 22:00] VITALS: BP 148/64
[2020-04-19] MEDS: traMADol HCL 50 MG TAB PO PRN ×3 (03:52→15:58)
[2020-04-19 04:56] VITALS: BP 154/71
[2020-04-19] MEDS: SODIUM CHLOR 0.9% PF (SALINE LOCK) 10ML VIAL/SYR IV SCH ×3 (06:12→21:15)
[2020-04-19] MEDS ORDERED: SODIUM CHL 0.9% 1000 ML BAG XX ONE (07:00)
--- NOTE | 2020-04-19 08:42 | NUR ---
SPOKE WITH JULIETA REGARDING TRANSFER TO [facility], SHE SAID SHE ALREADY SPOKE TO CHATO THE CUSTOMER LOYALTY REPRESENTATIVE, PT WILL NOT BE ACCEPTED UNTIL TUESDAY BECAUSE NOBODY IS AVAILABLE TO ADMIT THE PT. Addendum: 04/19/20 at 0847 by Ladonna Hernandez RN CHARGE NURSE SENDY CASTELAN AWARE, WILL NOTIFY
--- NOTE | 2020-04-19 08:59 | NUR ---
SPOKE TO DAUGHTER FRANSISCO, SHE SAID SHE CAN TAKE THE PT HOME PROVIDED PT HAS WALKER AND EVERYTHING HE NEED FOR 2 DAYS, [facility] CAN TAKE THE PT ON TUESDAY. I WILL INFORM .
--- NOTE | 2020-04-19 09:11 | NUR ---
SPOKE TO TALIA PUENTES SHE SAID TO FAX TO [facility] THE FACESHEET, H&P, AND ORDER FOR HOME HEALTH, WOUND CARE, PHYSICAL THERAPY, FWW, WHEECHAIR. FWW AND WHEECHAIR TO BE DELIVERED AT BEDSIDE.
--- NOTE | 2020-04-19 10:02 | NUR ---
SPOKE WITH DR. ANDERSON PT WILL NEED LUMBER KILN OPERATOR CONSULT FOR HH, WOUND CARE, PHYSICAL THERAPY, FWW, AND WHEEL CHAIR, PER DR. GONZALEZ HE NEED TO SEE THE PT.
[2020-04-19] MEDS: cefTRIAXone 1GM/50ML D5W 50 ML IV SCH (11:00)
[2020-04-19] MEDS: FLUCONAZOLE 200MG/100ML 100 ML IV SCH (11:00)
[2020-04-19] MEDS: CLOPIDOGREL BISULFATE 75 MG TAB PO SCH (11:01)
[2020-04-19] MEDS: APIXABAN 5 MG TAB PO SCH ×2 (11:01→21:15)
[2020-04-19] MEDS: FAMOTIDINE (10MG/ML) 2ML VL IV SCH (11:01)
--- NOTE | 2020-04-19 11:03 | NUR ---
HEMODIALYSIS DONE, 2.8L TOTAL OUTPUT, BP 131/78MMHG, HR 94BP.
--- NOTE | 2020-04-19 11:35 | NUR ---
PT SEEN BY DR. JUSTIN ANDERSON SPOKE TO TALIA CHAIRMAN & CO FOUNDER, PER DR. ANDERSON HE WILL NOT ORDER HOME HEALTH, PT WILL STAY UNTIL TUESDAY. Addendum: 04/19/20 at 1139 by Ladonna Hernandez RN RECEIVED ORDER FOR ADITHYA AND CHELI, ORDER READ BACK AND VERIFIED. Addendum: 04/19/20 at 1550 by Ladonna Hernandez RN [address] Anderson, he will not order home health for wound care, physical therapy, FWW and wheelchair, pt will stay until Tuesday and then transfer pt to [facility].
[2020-04-19] MEDS ORDERED: ONDANSETRON HCL 4 MG/2 ML VIAL IV PRN (11:45)
[2020-04-19] MEDS: HYDROcodone-ACET 7.5/325MG TAB PO PRN ×2 (12:52→21:21)
[2020-04-19 13:00] VITALS: BP 143/74
--- NOTE | 2020-04-19 13:34 | NUR ---
business relationship manager While business relationship manager I received a page from Ladonna GUERRERO stating patients covid is back and is negative. Ladonna has faxed negative result to Nadia from [facility] and to [facility]. Per Nadia [facility] will not admit over the weekend. I verified with Karen at [facility]. I contacted daughter Baldev and she agreed to take patient home for the weekend and then have her admitted to [facility] on Tuesday. Baldev informed me she will bring patient home if she has a fww and wheelchair so she can manage patient at home over the weekend. I requested DME order and home health for PT and wound care at the facility. I contacted [facility] transplant case manager Larryjulienne and she informed me to have Ladonna fax order to [phone]. I informed Ladonna GUERRERO. Per Ladonna Davis said no to consult and told Ladonna patient will stay here until Tuesday. I called Dr Davis and he informed me that it is best for patient to stay and discharge to facility on Tuesday. I informed Dr Davis that if patient is medically stable, I can get her out once [facility] delivers equipment. Dr Davis stated he wants her to stay until Tuesday. Addendum: 04/19/20 at 1342 by Maria Luisa ERICKSON Amended: Links added.
[2020-04-19 17:00] VITALS: BP 138/74
[2020-04-19 21:03] VITALS: BP 134/69
[2020-04-19] MEDS: ATORVASTATIN 20 MG TAB PO SCH (21:15)
[2020-04-20 05:10] VITALS: BP 159/77
[2020-04-20] MEDS: SODIUM CHLOR 0.9% PF (SALINE LOCK) 10ML VIAL/SYR IV SCH ×3 (06:10→21:28)
[2020-04-20 06:55] VITALS: BP 118/80
--- NOTE | 2020-04-20 07:30 | NUR ---
RECEIVED REPORT FROM NIGHT NURSE. PATIENT RESTING IN BED, NO DISTRESS NOTED. SITTER AT BEDSIDE. WILL CONTINUE TO MONITOR.
[2020-04-20] MEDS: HYDROcodone-ACET 7.5/325MG TAB PO PRN (08:26)
[2020-04-20 09:00] VITALS: BP 118/58
[2020-04-20] MEDS: FAMOTIDINE (10MG/ML) 2ML VL IV SCH (09:53)
[2020-04-20] MEDS: cefTRIAXone 1GM/50ML D5W 50 ML IV SCH (09:53)
[2020-04-20] MEDS: CLOPIDOGREL BISULFATE 75 MG TAB PO SCH (09:53)
[2020-04-20] MEDS: FLUCONAZOLE 200MG/100ML 100 ML IV SCH (09:54)
[2020-04-20] MEDS: APIXABAN 5 MG TAB PO SCH ×2 (09:54→21:28)
[2020-04-20 14:12] VITALS: BP 141/67
--- NOTE | 2020-04-20 14:25 | NUR ---
Nutrition Followup Note Wt 96.5kg Pt was sleeping at time of rounds. Pt is awaiting transfer to assisted living facility. Pt is on HD with last HD 04/19 per RN note. Pt with fair po intake aeb pt with an avg po intake of 63% x 2 days per RN note. Will continue to monitor po intake and need for oral supplements Est Energy needs ABW 85 k-2295kcals (25-27 kcal/kgABW), Est Protein needs: 102-110 gms/day (1.2-1.3 gm/kgABW r/t HD). Will continue to monitor and reassess prn. Labs: Pt with no new labs since 04/14: BUN 39H, Creat 4.14H, Alb 2.1L, CA 7.0L, GLUC 109H BM: Pt with 1 BM 04/19 per RN note Skin: Bs 16 mod risk, full details in healthcare customer service note Altered nutrition related lab values r.t current chronic medical condition aeb elev RFT severe hypoalb Decreased nutrient needs r/t adiposity aeb pt`s high BMI of 39.7 kgm2 Inadequate PO intake r/t current mental condition aeb pt`s recorded PO < 75% Comments: 1) consider renal std cardiac diet 2) consider prostat 1 packet daily 3) consider nephrovite and Vit C bid 4) refer to OPD dietitian on DC 5) continue current plan of care Expected Outcomes/Goals: pt will have improved labs pt will have better healing skin F/U MOD 3-5 DAYS
[2020-04-20] MEDS: traMADol HCL 50 MG TAB PO PRN ×2 (15:00→21:30)
--- NOTE | 2020-04-20 15:30 | NUR ---
PT AT BEDSIDE.
[2020-04-20 17:00] VITALS: BP 128/71
--- NOTE | 2020-04-20 18:27 | NUR ---
MED/SURG DOWNGRADE PATIENT DOWNGRADED TO MED/SURG PER PROTOCOL. TELE BOX REMOVED AND SENT BACK TO TELE MONITOR ROOM.
--- NOTE | 2020-04-20 19:15 | NUR ---
Opening Shift Note received report from Laya GUERRERO. Assumed care of patient, awake and alert. Sitter at bedside. No S/S of distress/SOB or pain. Instructed on POC and to call for assist PRN. Fall precaution measures in place, will continue to monitor for changes Q1hr and PRN.
[2020-04-20] MEDS: ATORVASTATIN 20 MG TAB PO SCH (21:28)
[2020-04-20 22:00] VITALS: BP 107/70
[2020-04-21 05:00] VITALS: BP 122/60
[2020-04-21] MEDS: HYDROcodone-ACET 7.5/325MG TAB PO PRN (05:44)
[2020-04-21] MEDS: SODIUM CHLOR 0.9% PF (SALINE LOCK) 10ML VIAL/SYR IV SCH (06:18)
--- NOTE | 2020-04-21 07:30 | NUR ---
Opening Shift Note Report received and assumed care of patient,awake,very anxious wants to go home and be discharged,patient stated it her wedding anniversary today and is waiting. respirations even and unlabored. No S/S of pain. Bed in lowest and locked position, call light within reach, sfety attendant at bedside,will continue to monitor
--- NOTE | 2020-04-21 08:00 | NUR ---
LEFT CHEST PACER SITE WITH DRESSING DRY INTACT NOTED TO HAVE ECCHYMOSIS TO LEFT FOREARM
[2020-04-21 09:00] VITALS: BP 137/31
--- NOTE | 2020-04-21 10:13 | NUR ---
re-assessment I called and spoke to Karen client services administrator at [facility]. I have answered all questions. Per Karen she needed PT eval, labs. and covid. All paperwork has been sent. Karen also informed me she needs home health for PT, wound care and a fww. I have notified Dr Soriano of what I need for this patient. I also informed Dr Soriano that I asked for these orders on Tuesday so I could get patient out on Tuesday and Dr Davis refused. Addendum: 04/21/20 at 1058 by Maria Luisa ERICKSON Amended: Links added.
[2020-04-21] MEDS: FAMOTIDINE (10MG/ML) 2ML VL IV SCH (10:38)
[2020-04-21] MEDS: cefTRIAXone 1GM/50ML D5W 50 ML IV SCH (10:38)
[2020-04-21] MEDS: FLUCONAZOLE 200MG/100ML 100 ML IV SCH (10:39)
[2020-04-21] MEDS: CLOPIDOGREL BISULFATE 75 MG TAB PO SCH (10:39)
[2020-04-21] MEDS: APIXABAN 5 MG TAB PO SCH (10:39)
--- NOTE | 2020-04-21 10:45 | NUR ---
re-assessment Per Charisse GUERRERO at [facility] Patient is accepted and will be admitted to room 206. Per Karen at [facility] she will arrange transport to [facility] on and and daughter Baldev will transport on Saturdays. Baldev verified transport arrangement. Karen assistant merchandise manager is working on home health and fww with [facility]. Patient is cleared for discharge once home health and fww orders are satisfied. Addendum: 04/21/20 at 1532 by Maria Luisa ERICKSON Amended: Links added.
--- NOTE | 2020-04-21 10:52 | NUR ---
I faxed [facility]FWW order to [facility].
--- NOTE | 2020-04-21 11:15 | NUR ---
RECEIVED A CALL FROM [facility] THAT DAUGHTER IS HERE TO STOCK WETTER PATIENT
--- NOTE | 2020-04-21 11:22 | NUR ---
PER TALIA FLOOR SANDING MACHINE OPERATOR ELMA WILL DELIVER FRONT WHEEL WALKER TO [facility] AND [facility],TO DISCHARGE PATIENT WITH DAUGHTER THEN DAUGHTER WILL BRING PATIENT TO [facility] AT 1430.
--- NOTE | 2020-04-21 11:35 | NUR ---
RECEIVED VERBAL ORDER FROM DR. PITT TO DISCONTINUE MID LINE AND SERRANO AND NOT TO WAIT FOR PATIENT TO VOID,PATIENT CAN BE DISCHARGE ONCE DISCONTINUED.
--- NOTE | 2020-04-21 11:42 | NUR ---
1130 04/21/20 I called [facility] and spoke with labor relations analyst Anya to verify that they received the home health and FWW order. Per Anya she does not see the order yet. She said the assigned director of casework is Kathya-she will let her know that this patient is discharging to assisted living facility today-she will have her call me back with an update on the home health arrangement and FWW. I let Anya know that FWW needs to be delivered to [place] [address] room 206-she will pass this information on to director of casework Kathya as well as my request for continued authorization for patient's stay.
--- NOTE | 2020-04-21 11:45 | NUR ---
MIDLINE TO LEFT UPPER ARM DISCONTINUED,CATHETER INTACT.,SERRANO CATHETER DISCONTINUED
--- NOTE | 2020-04-21 11:54 | NUR ---
Discharge instructions given as ordered to daughter Nasreen. [facility]. All questions and concerns addressed. informed and daughter made aware that Suarez Catheter was discontinued and she needs to void within 6 hours,verbalized understanding. Medication reconciliation form completed and copy given.
--- NOTE | 2020-04-21 11:55 | NUR ---
Patient taken to vehicle via wheelchair with all personal belongings, accompanied by staff and family member. No distress noted at time of departure.
--- NOTE | 2020-04-21 12:27 | NUR ---
1220 04/21/20 I received a call from [facility] [employer] Kathya-she verified that they did receive order for home health and walker. Kathya is aware that walker needs to be delivered to [facility]. I requested that authorization be given for patient's continued stay. Per Kathya she will review clinical information and give me a call back regarding authorization request.
--- NOTE | 2020-04-21 12:27 | NUR ---
received call from Karen [employer] Bander to revised Home Health for PT,RN for wound care and home for walker. for [facility] to be able to processed.
[2020-04-21 12:32] VITALS: BP 152/64
== END 2020-04-21 11:55 | disposition home health service (06) | DRG 280 ==
LOC: ER 16:07 → EDUNIT# 16:07 → EDBD 16:07 → TELE 16:08 → TELE-WESTW 04-13 19:00 → WEST WING 04-20 19:03
PROVIDERS: ADMIT Internal Medicine; ATTEND Internal Medicine
PROC: 5A1D70Z Performance of Urinary Filtration, Intermittent, Less than 6 Hours Per Day (ICD-10-PCS; principal; 2020-04-11)
DX: R57.0 Cardiogenic shock (principal); I21.4 Non-ST elevation (NSTEMI) myocardial infarction; L89.153 Pressure ulcer of sacral region, stage 3; I26.99 Other pulmonary embolism without acute cor pulmonale; N18.6 End stage renal disease; G93.41 Metabolic encephalopathy; N30.00 Acute cystitis without hematuria; E44.0 Moderate protein-calorie malnutrition; I13.2 Hypertensive heart and chronic kidney disease with heart failure and with stage 5 chronic kidney disease, or end stage renal disease; E83.51 Hypocalcemia; I25.10 Atherosclerotic heart disease of native coronary artery without angina pectoris; I50.9 Heart failure, unspecified; D63.1 Anemia in chronic kidney disease; E78.5 Hyperlipidemia, unspecified; D72.819 Decreased white blood cell count, unspecified; Z95.5 Presence of coronary angioplasty implant and graft; Z99.2 Dependence on renal dialysis; Z79.899 Other long term (current) drug therapy; Z88.5 Allergy status to narcotic agent; Z11.59 Encounter for screening for other viral diseases; Z68.39 Body mass index [BMI] 39.0-39.9, adult
CPT/HCPCS: 36415; 70450; 71250; 71275; 76705; 80053; 80320; 81001; 82140; 82728; 83036; 83605; 83615; 83735; 84484; 85007; 85025; 85027; 85610; 85730; 86141; 87040; 87081; 87086; 90935; 93005; 93306; G0378; J0696; J0885; J1450; J1642; J2543; J3490

== ENCOUNTER 2020-08-22 21:29 | Inpatient (IN) | payer OTHER ==
[~2020-08-22] VITALS: Ht 162.6 cm; Wt 80.4 kg
[~2020-08-22 21:29] MED LIST: APIX5TAB PO; CLOP75TA41 PO; FLUC200T35 PO; GABA100C9 PO; LOSA25TA8 PO; ONDA-144 PO; QUET25TA37 PO; ROSU5TAB5 PO; TIZA4CAP PO; TRAM50TA2 PO
[2020-08-22] MEDS ORDERED: SODIUM CHLORIDE 0.9% 1,000 ML IV ONE (21:45)
[2020-08-22] MEDS ORDERED: levoFLOXacin 500 MG/100 ML PREMIX BAG IV ONE (21:45)
[2020-08-22] MEDS ORDERED: IOHEXOL 300 MG/ML 100ML BOTTLE IJ ONE (22:07)
[2020-08-22] MEDS ORDERED: VANCOMYCIN 1GM/250ML 250 ML IV ONE (23:30)
[2020-08-23 00:31] LABS: Basophils # (auto) 0 10 ^3/uL (0-0.2); Eosinophils # (auto) 0 10 ^3/uL (0-0.8); Hematocrit 42.3 % (36.0-46.0); Hemoglobin 13.4 g/dL (12.2-16.2); Lymphocytes # (auto) 0.6 10 ^3/uL (0.4-5.4); Lymphocytes % (auto) 3.4 % (10.0-50.0); Mean Corpuscular Hemoglobin 27.1 pg (28.0-32.0); Mean Corpuscular Hgb Conc. 31.7 g/dL (32.0-36.0); Mean Corpuscular Volume 85.4 fL (80.0-100.0); Monocytes # (auto) 0.5 10 ^3/uL (0-1.3); Monocytes % (auto) 2.9 % (0.0-12.0); Neutrophils # (auto) 15.3 10 ^3/uL (1.6-8.6); Neutrophils % (auto) 93.7 % (37.0-80.0); Platelet Count (auto) 264 10^3/uL (140-450); Red Blood Cells 4.95 10^6/uL (4.0-5.20); Red Cell Distribution Width 17.3 % (11.8-14.3); White Blood Cell 16.3 10^3/uL (4.4-10.8)
[2020-08-23 01:22] LABS: INR 1.08 (0.9-1.15); Partial Thromboplastin Time 27.4 sec (23.0-31.2)
[2020-08-23 01:39] LABS: Alanine Aminotransferase 6 U/L (13-56); Albumin 2.4 g/dL (3.4-5.0); Anion Gap 9 (5-15); Aspartate Aminotransferase 8 U/L (15-37); BUN/Creatinine Ratio 21.2; Blood Alcohol < 3.0 mg/dL (0-5); Blood Urea Nitrogen 18 mg/dL (7-18); Calcium 8.5 mg/dL (8.5-10.1); Carbon Dioxide 26 mmol/L (21-32); Chloride 107 mmol/L (98-107); GFR African American 83 mL/min; GFR Non-African American 69 mL/min; Glucose 168 mg/dL (74-106); Magnesium 2.2 mg/dL (1.6-2.6); Potassium 3.4 mmol/L (3.5-5.1); Sodium 142 mmol/L (136-145)
[2020-08-23 01:41] LABS: Alkaline Phosphatase 63 U/L (45-117); Bilirubin, Total 0.6 mg/dL (0.2-1.0); Total Protein 6.6 g/dL (6.4-8.2)
[2020-08-23] MEDS ORDERED: ONDANSETRON HCL 4 MG/2 ML VIAL IV PRN (02:15)
[2020-08-23] MEDS ORDERED: DEXTROSE (50%) 50ML SYRG IV PRN (02:15)
[2020-08-23] MEDS ORDERED: NITROGLYCERIN 0.4 MG SL TAB SL PRN (02:15)
[2020-08-23] MEDS ORDERED: HYDROcodone-ACET 5/325MG TAB PO PRN (02:15)
[2020-08-23] MEDS ORDERED: ACETAMINOPHEN 500 MG TAB PO PRN (02:15)
[2020-08-23] MEDS ORDERED: MORPHINE SULF INJ 2 MG/ML SYRINGE 1ML IV PRN ×2 (02:15→02:30)
[2020-08-23] MEDS ORDERED: VANCOMYCIN PER PHARMACY 0 MG IV SCH (02:15)
[2020-08-23] MEDS ORDERED: ALBUTEROL SULF HFA 90MCG INH 200DOSE IN PRN (02:15)
[2020-08-23 02:27] LABS: CRP High Sensitivity 5.59 mg/dL (< 0.3)
[2020-08-23] MEDS ORDERED: VANCOMYCIN 1GM/250ML 250 ML IV ONE (02:30)
[2020-08-23] MEDS: SOD CHL 0.45% 1,000 ML IV SCH ×2 (02:41→22:30)
[2020-08-23] MEDS ORDERED: POTASSIUM CHL 20MEQ/100ML 100 ML IV ONE (02:45)
[2020-08-23 04:06] LABS: Cholesterol 147 mg/dL (< 200); Triglycerides 138 mg/dL (< 150)
[2020-08-23 04:08] LABS: HDL Cholesterol 29 mg/dL (40-59); LDL Cholesterol 99 mg/dL (< 100)
[2020-08-23] MEDS: SODIUM CHLOR 0.9% PF (SALINE LOCK) 10ML VIAL/SYR IV SCH ×3 (06:10→21:21)
[2020-08-23] MEDS: ACCU-CHEK COMFORT CURVE STRIP VI SCH ×4 (06:48→21:22)
[2020-08-23] MEDS: InsuLIN REG 1unit/0.01ml Soln (100units/ml) SC SCH ×4 (06:49→21:23)
[2020-08-23] MEDS ORDERED: ACETAMINOPHEN 650 MG RECT SUPP PR PRN (07:15)
[2020-08-23 08:47] LABS: Urine Bacteria FEW /hpf (None Seen); Urine Blood 1+ /uL (Negative); Urine Mucus FEW (None Seen); Urine WBC 31 /hpf (0 - 5)
[2020-08-23 08:49] LABS: Alcohol, Urine < 3.0 mg/dL (0-10); Amphetamine Screen, Urine NEGATIVE (NEGATIVE); Barbiturate Scree,Urine NEGATIVE (NEGATIVE); Benzodiazephine Screen, Urine NEGATIVE (NEGATIVE); Cannabinoid Screen, Urine NEGATIVE (NEGATIVE); Cocaine Screen, Urine NEGATIVE (NEGATIVE); Opiate Scree,Urine NEGATIVE (NEGATIVE); Phencyclidine Screen, Urine NEGATIVE (NEGATIVE)
[2020-08-23 08:53] LABS: Urine Specific Gravity > 1.050 (1.001-1.035)
[2020-08-23] MEDS ORDERED: ENOXAPARIN SOD 40 MG/0.4 ML SYRINGE SC SCH (10:00)
[2020-08-23] MEDS ORDERED: BUDESONIDE (INHALATION) 180 MCG IH IN SCH (10:00)
[2020-08-23] MEDS ORDERED: ASCORBIC ACID 1,000 MG TAB PO SCH (10:00)
[2020-08-23] MEDS ORDERED: ZINC SULFATE 220mg CAP or TAB PO SCH (10:00)
[2020-08-23] MEDS ORDERED: CHOLECALCIFEROL (VITD3) 2,000 UNIT CAP PO SCH (10:00)
[2020-08-23] MEDS ORDERED: DexAMETHasone SOD PHOS 10MG/1ML VIAL INJ IV SCH (10:00)
[2020-08-23] MEDS: ASPirin 81 mg TAB PO SCH (11:23)
[2020-08-23] MEDS: ZINC SULFATE 220mg CAP or TAB PO SCH (11:23)
[2020-08-23] MEDS: APIXABAN 5 MG TAB PO SCH ×2 (11:24→21:08)
[2020-08-23] MEDS: MULTIPLE VITAMIN TAB PO SCH (11:24)
[2020-08-23] MEDS: DOXYCYCLINE 100MG/250ML 250 ML IV SCH ×2 (11:58→21:22)
[2020-08-23] MEDS: PANTOPRAZOLE 40 MG/10 ML VIAL INJ IV SCH (11:58)
--- NOTE | 2020-08-23 12:17 | NUR ---
Respiratory note: 10:00AM PULMICORT INH TX NOT ADMINISTERED DUE TO COVID-19 RESULTS PENDING. RN AWARE TO HAVE RT PAGED IF NEEDED. PT WAS ASSESSED AND FOUND TO BE IN NO NOTED DISTRESS. HR 95 RR 16 SPO2 99% ON 2L N/C.
--- NOTE | 2020-08-23 18:00 | NUR ---
PATIENT ARRIVED TO UNIT VIA GURNEY WITH NO SIGNS OF DISTRESS OR SOB. PATIENT IS ON 2L NC. PATIENT IS AOX0. PATIENT FOLLOWS WITH EYES AND IS NON-VERBAL. PATIENT WITHDRAWS FROM PAIN AND TOUCH. PATIENT IS ON TELE NUMBER [id number] SR IN THE 80S. PATIENT HAS A SERRANO, BAG HUNG BELOW, PATENT, DRAINING AND FREE OF KINKS. WOUND CARE ORDER PLACED FOR SACRAL WOUND, OPTIFOAM APPLIED AND WOUND PICTURES TAKEN. PATIENT BED IS LOCKED AND IN LOWEST POSITION. CALL LIGHT WITHIN REACH.
--- NOTE | 2020-08-23 19:30 | NUR ---
Opening Shift Note Patient is AOx1. Patient responsive to touch and name. Unable to follow commands. Patient spoke three one word sentences, but unclear. Patient eyes are open w/ flat effect present. Patient unable to suck on straw for fluids. Patient mouth visibly dry, used swabs for mouth. Patient bed locked in lowest position. Patient on 2L on nasal cannula. No s/s of distress or SOB. Patient close to nurses station. Will continue to monitor.
[2020-08-23 20:00] VITALS: BP 133/58
[2020-08-23 22:13] VITALS: BP 133/58
[2020-08-24 04:50] LABS: Basophils # (auto) 0 10 ^3/uL (0-0.2); Eosinophils # (auto) 0 10 ^3/uL (0-0.8); Hematocrit 33.9 % (36.0-46.0); Hemoglobin 10.7 g/dL (12.2-16.2); Lymphocytes # (auto) 0.6 10 ^3/uL (0.4-5.4); Lymphocytes % (auto) 4.9 % (10.0-50.0); Mean Corpuscular Hgb Conc. 31.6 g/dL (32.0-36.0); Mean Corpuscular Volume 85.4 fL (80.0-100.0); Monocytes # (auto) 0.7 10 ^3/uL (0-1.3); Monocytes % (auto) 5.9 % (0.0-12.0); Neutrophils # (auto) 10.2 10 ^3/uL (1.6-8.6); Neutrophils % (auto) 89.2 % (37.0-80.0); Nucleated Red Blood Cells % 0.1 %; Platelet Count (auto) 205 10^3/uL (140-450); Red Blood Cells 3.96 10^6/uL (4.0-5.20); Red Cell Distribution Width 17.2 % (11.8-14.3); White Blood Cell 11.5 10^3/uL (4.4-10.8)
[2020-08-24 05:07] LABS: Albumin 2.1 g/dL (3.4-5.0)
[2020-08-24 05:11] LABS: BUN/Creatinine Ratio 34.4; Bilirubin, Total 0.4 mg/dL (0.2-1.0); Total Protein 5.4 g/dL (6.4-8.2)
[2020-08-24 05:21] LABS: Potassium 2.9 mmol/L (3.5-5.1)
--- NOTE | 2020-08-24 05:24 | NUR ---
Critical Lab Value: Potassium 2.9 Hematology called with a critical lab value of potassium of 2.9. Paged hospitalist at this time.
[2020-08-24 05:25] VITALS: BP 138/60
[2020-08-24] MEDS: SODIUM CHLOR 0.9% PF (SALINE LOCK) 10ML VIAL/SYR IV SCH ×3 (06:00→21:22)
[2020-08-24] MEDS: ACCU-CHEK COMFORT CURVE STRIP VI SCH ×4 (06:07→21:23)
[2020-08-24] MEDS: InsuLIN REG 1unit/0.01ml Soln (100units/ml) SC SCH ×4 (06:07→21:23)
[2020-08-24] MEDS: VANCOMYCIN 750mg/250ml 250 ML IV SCH (06:54)
--- NOTE | 2020-08-24 06:55 | NUR ---
Awaiting call back from hospitalist; No call back at this time.
--- NOTE | 2020-08-24 07:30 | NUR ---
Opening Shift Note Assumed care of patient, awake, able to track nurse across room, oriented to self. No S/S of distress/SOB or pain on 2 LPM via nasal cannula. Instructed on POC and to call for assist PRN, will continue to monitor for changes Q1hr and PRN. Bed in low and locked position, rails up x2, no-slip socks on. Repositioned for comfort and to relieve pressure off bony prominences.
[2020-08-24 08:00] VITALS: BP 153/72
--- NOTE | 2020-08-24 08:00 | NUR ---
CRITICAL POTASSIUM PAGE TO [employer] INSPECTOR HOSPITALIST, DR JOHNS CALL BACK ORDERS RECIEVED.
[2020-08-24] MEDS: PANTOPRAZOLE 40 MG/10 ML VIAL INJ IV SCH (09:45)
[2020-08-24] MEDS: POTASSIUM CHL 20MEQ/100ML 100 ML IV SCH ×2 (09:46→12:25)
[2020-08-24] MEDS: ASPirin 81 mg TAB PO SCH (10:00)
[2020-08-24] MEDS: ZINC SULFATE 220mg CAP or TAB PO SCH (10:00)
[2020-08-24] MEDS: MULTIPLE VITAMIN TAB PO SCH (10:00)
[2020-08-24] MEDS: APIXABAN 5 MG TAB PO SCH ×2 (10:00→21:22)
--- NOTE | 2020-08-24 10:08 | NUR ---
LOW AIR LOSS BED: Patient is on Isoflex gel mattress, battery charger tester applied pump on bed for low air loss function of bed. Addendum: 08/24/20 at 1206 by Teresa Phan RN Amended: Links added.
--- NOTE | 2020-08-24 10:15 | NUR ---
WOUND CARE NOTE: Wound care in to see patient per wound care request regarding pressure injury that are noted upon admission. Bedside nurse took photograph of patient's wounds for reference. Patient is 79 years old female with admitting diagnosis of Bilateral Lower Lobe Pneumonia. Patient is resting in low air loss bed in Rm. 293B. Patient is awake but not oriented. She mumbles incomprehensible words. Patient appears to be in no pain using Ruiz Yanes Faces Pain Scale however mild pain noted upon turning. She's max assist in turning and repositioning. Her Govind score is 13. Skin/wound assessment done with the assistance of patient's nurse, YOLANDA Goodwin. Noted patient's Lt and Rt sacrum has large dark red/black pressure injury with 2.5x5cm open wound to Rt sacrum. Wound bed is red, blackened with black periwound,minimal serosanguineous drainage noted on dressing, no odor noted. Patient's R heel also noted with 3x3cm black hard stable eschar wound. Patient's Rt heel and sacral wounds are Unstable pressure injury. Cleansed patient's sacrum with mild soap and water, patted dry, applied Thera honey gauze and covered with Opti foam sacral dressing. Repositioned patient for comfort facing her Lt side,redistributed pressure points with pillows. Patient tolerated well. Bed in low position,call acosta within reach with all safety precautions in placed. RECOMMENDATION: Nursing to continue with Daily/PRN dressing change to sacral wound and Daily cleaning of Rt heel wound with Betadine per MD order, Dietary consult for wounds, frequent turning and repositioning schedule as condition permits, redistribute pressure points with pillows, low air loss mattress, foam boots/elevate heels on pillows, continue monitoring by wound care while patient is hospitalized. Addendum: 08/24/20 at 1249 by Teresa Phan RN Amended: Links added.
--- NOTE | 2020-08-24 10:20 | NUR ---
WOUND CARE AT BEDSIDE
[2020-08-24] MEDS ORDERED: AZITHROMYCIN 500MG/ 250ML 250 ML IV ONE (11:00)
--- NOTE | 2020-08-24 11:05 | NUR ---
DR Rob ANDERSON AT BEDSIDE NEW ORDERS ADDED FOR FLUIDS AND ANTIBIOTICS WELL SWALLOW EVAL.
--- NOTE | 2020-08-24 11:10 | NUR ---
IV insertion/IV removal IV access obtained, via clean sterile technique by inserting 22 gauge catheter at left wrist after 1 attempt. IV secured properly. No trauma to site. Patient tolerated well. IV DC'd to left AC with clean sterile technique, catheter fully intact. Pressure dressing applied to site. Patient tolerated well.
[2020-08-24] MEDS ORDERED: levoFLOXacin 500 MG TAB PO ONE (11:15)
--- NOTE | 2020-08-24 11:25 | NUR ---
Nutrition Assessment Est energy needs 2285-9168 kcal (20-25 kcal/kg BW 70.8kg) Est protein needs 57-71g (0.8-1g/kg BW 70.8kg) Will monitor and reassess prn. Addendum: 08/24/20 at [address] Amended: Links added.
--- NOTE | 2020-08-24 11:30 | NUR ---
FAMILY CALL PASSWORD PROVIDED, UPDATED ON PLAN OF CARE, DNR PAPERWORK DELIVERED TO STATION, DR Rob ANDERSON NOTIFIED. NEW ORDERS TO BE ADDED.
[2020-08-24] MEDS ORDERED: LORazepam 2MG/ML-1ML VIAL IV PRN ×2 (11:45→20:15)
[2020-08-24 12:00] VITALS: BP 171/71
[2020-08-24] MEDS ORDERED: cloNIDine HCL 0.1 MG TAB PO PRN (12:00)
[2020-08-24] MEDS: SODIUM CHLORIDE 0.9% 1,000 ML IV SCH ×2 (12:23→18:10)
[2020-08-24] MEDS: hydrALAZINE HCL 20 MG/ML VL IV PRN (12:24)
[2020-08-24] MEDS ORDERED: levoFLOXacin 500MG 100 ML IV ONE (13:00)
[2020-08-24 16:00] VITALS: BP 156/80
--- NOTE | 2020-08-24 17:27 | NUR ---
SWALLOW EVALUATED. PATIENT HAS NATURAL TEETH. ABLE TO FOLLOW COMMANDS. PATIENT ABLE TO TOLERATE PUREE DIET TEXTURE WITH THIN LIQUIDS INCLUDING USE OF STRAW WITH NO OVERT SIGNS OR SYMPTOMS OF ASPIRATION. NURSING NOTIFIED.
--- NOTE | 2020-08-24 19:35 | NUR ---
Opening Shift Note Assumed care of patient, awake and alert laying in the semi fowlers position with no S/S of distress/SOB or pain. Oxygen saturation 98% on 2L oxygen N/C. Bed locked in the lowest position, side rails up X2, call light within reach. Instructed on POC and to call for assist PRN, will continue to monitor for changes Q1hr and PRN.
[2020-08-24 23:17] VITALS: BP 158/80
--- NOTE | 2020-08-24 23:30 | NUR ---
ROUNDS PATIENT RESTING IN THE LOW FOWLERS POSITION. NO SIGNS OF DISTRESS/ SOB AT THIS TIME.
[2020-08-25] VITALS (7 sets, daily range): BP systolic 134–165; BP diastolic 75–107
[2020-08-25] MEDS: SODIUM CHLORIDE 0.9% 1,000 ML IV SCH ×3 (01:17→14:07)
[2020-08-25] MEDS: SODIUM CHLOR 0.9% PF (SALINE LOCK) 10ML VIAL/SYR IV SCH ×3 (05:55→21:50)
[2020-08-25] MEDS: ACCU-CHEK COMFORT CURVE STRIP VI SCH ×4 (05:55→21:50)
[2020-08-25] MEDS: InsuLIN REG 1unit/0.01ml Soln (100units/ml) SC SCH ×4 (05:55→21:51)
--- NOTE | 2020-08-25 06:00 | NUR ---
PAGED PHARMACY FOR VANCOMYCIN DUE AT 0600. NONE LOADED IN [email or web address].
--- NOTE | 2020-08-25 06:32 | NUR ---
PAGED PHARMACY FOR VANCOMYCIN, WILL BULLET THE MEDICATION SOON IT IS AVAILABLE.
[2020-08-25] MEDS: VANCOMYCIN 750mg/250ml 250 ML IV SCH (06:50)
--- NOTE | 2020-08-25 07:30 | NUR ---
CARE ENDORSED TO DAY SHIFT RN. PATIENT RESTING ON HER RIGHT SIDE. COLOSTOMY LLQ PATENT WITH CLEAN INTACT STOMA. SERRANO CATHETER DRAINING LIGHT YELLOW . NO SIGNS OF DISTRESS/ SOB AT THIS TIME.
[2020-08-25 07:43] LABS: Basophils # (auto) 0 10 ^3/uL (0-0.2); Basophils % (auto) 0.1 % (0.0-2.0); Eosinophils # (auto) 0 10 ^3/uL (0-0.8); Eosinophils % (auto) 0.1 % (0.0-7.0); Hematocrit 32.4 % (36.0-46.0); Hemoglobin 10.3 g/dL (12.2-16.2); Lymphocytes # (auto) 0.4 10 ^3/uL (0.4-5.4); Lymphocytes % (auto) 4.7 % (10.0-50.0); Mean Corpuscular Hemoglobin 27.2 pg (28.0-32.0); Mean Corpuscular Hgb Conc. 31.8 g/dL (32.0-36.0); Mean Corpuscular Volume 85.7 fL (80.0-100.0); Monocytes # (auto) 0.5 10 ^3/uL (0-1.3); Monocytes % (auto) 5.9 % (0.0-12.0); Neutrophils % (auto) 89.2 % (37.0-80.0); Nucleated Red Blood Cells % 0.1 %; Platelet Count (auto) 200 10^3/uL (140-450); Red Blood Cells 3.78 10^6/uL (4.0-5.20)
[2020-08-25 08:04] LABS: Calcium 7.9 mg/dL (8.5-10.1); Potassium 3.2 mmol/L (3.5-5.1)
[2020-08-25 08:09] LABS: BUN/Creatinine Ratio 37.5; Bilirubin, Total 0.6 mg/dL (0.2-1.0)
--- NOTE | 2020-08-25 08:35 | NUR ---
Patient resting in bed with no distress noted. Reposition at this time. Patient stable.
[2020-08-25] MEDS ORDERED: IOHEXOL 350 MG/ML 100ML IJ ONE (09:38)
[2020-08-25] MEDS ORDERED: GASTROGRAFIN 120 ML SOL ONE (09:49)
[2020-08-25] MEDS ORDERED: BARIUM SULFATE 98% 340 GM PWDR ONE ×2 (09:51→09:53)
[2020-08-25] MEDS ORDERED: EZ PAQUE SUSP 12OZ BTL ONE (09:53)
[2020-08-25] MEDS ORDERED: AZITHROMYCIN 500MG/ 250ML 250 ML IV SCH (10:00)
[2020-08-25] MEDS ORDERED: levoFLOXacin 500 MG TAB PO SCH (10:00)
[2020-08-25 10:06] LABS: Folate (Folic Acid) 5.64 ng/mL (5.38-24)
--- NOTE | 2020-08-25 10:20 | NUR ---
Called Peyton, daughter for telephone consent for CT angiogram. Per daughter, she's not comfortable with the contrast; asked if there is a less invasive route. Advised will contact doctor and call her back.
[2020-08-25] MEDS: PANTOPRAZOLE 40 MG/10 ML VIAL INJ IV SCH (10:52)
[2020-08-25] MEDS: MULTIPLE VITAMIN TAB PO SCH (10:55)
[2020-08-25] MEDS: ZINC SULFATE 220mg CAP or TAB PO SCH (10:55)
[2020-08-25] MEDS: APIXABAN 5 MG TAB PO SCH ×2 (10:55→21:54)
[2020-08-25] MEDS: ASPirin 81 mg TAB PO SCH (10:55)
--- NOTE | 2020-08-25 10:55 | NUR ---
Scheduled IVP and IV abx medications given per order. Patient stable at this time.
--- NOTE | 2020-08-25 11:40 | NUR ---
Checked blood sugar: 97 mg/dl - no coverage required. Patient stable with Dr. Davis at bedside.
--- NOTE | 2020-08-25 12:08 | NUR ---
Patient taken in stable condition to Radiology Dept for esophagus gastrografin swallow.
--- NOTE | 2020-08-25 12:35 | NUR ---
Patient returned to unit; swallow test unsuccessful - patient unable to follow instructions and refused to swallow when asked.
[2020-08-25] MEDS: levoFLOXacin 500MG 100 ML IV SCH (12:58)
--- NOTE | 2020-08-25 15:50 | NUR ---
Patient resting comfortably in bed with no distress noted. Patient stable.
--- NOTE | 2020-08-25 17:29 | NUR ---
Checked blood sugar: 77 mg/dl - no coverage required. Patient stable at this time.
[2020-08-25] MEDS ORDERED: HALOPERIDOL LACTATE 5 MG/ML INJ VIAL IM PRN (19:15)
--- NOTE | 2020-08-25 19:30 | NUR ---
Opening Shift Note Assumed care of patient, awake and alert. Patient on 2L N/C oxygen saturation 99% with no S/S of distress/SOB or pain. Ostomy LLQ patent with liquid brown stool, ruiz draining light yellow urine. Bed locked in lowest position, side rails up X2, call light within reach. Instructed on POC and to call for assist PRN, will continue to monitor for changes Q1hr and PRN.
--- NOTE | 2020-08-26 00:05 | NUR ---
ROUNDS PATIENT RESTING ON HER RIGHT SIDE WITH THE PILLOW WEDGED ON HER LEFT SIDE TURNING HER Q2. NO SIGNS OF DISTRESS/ SOB AT THIS TIME/
--- NOTE | 2020-08-26 04:00 | NUR ---
ROUNDS PATIENT RESTING ON HER LEFT SIDE WITH THE PILLOW WEDGED ON HER RIGHT SIDE TURNING HER Q2. NO SIGNS OF DISTRESS/ SOB AT THIS TIME.
[2020-08-26 05:00] VITALS: BP 164/87
[2020-08-26] MEDS: InsuLIN REG 1unit/0.01ml Soln (100units/ml) SC SCH ×4 (05:46→21:02)
[2020-08-26] MEDS: ACCU-CHEK COMFORT CURVE STRIP VI SCH ×4 (05:46→21:03)
[2020-08-26] MEDS: hydrALAZINE HCL 20 MG/ML VL IV PRN (05:46)
[2020-08-26] MEDS: SODIUM CHLOR 0.9% PF (SALINE LOCK) 10ML VIAL/SYR IV SCH ×3 (05:47→21:02)
[2020-08-26] MEDS: VANCOMYCIN 750mg/250ml 250 ML IV SCH (06:34)
--- NOTE | 2020-08-26 07:13 | NUR ---
CARE ENDORSED TO DAY SHIFT RN. PATIENT LAYING IN HIGH FOWLERS POSITION. COLOSTOMY HAS MILD LIGHT BROWN STOOL DRAINING WNL. SERRANO DRAINING WITH LIGHT YELLOW URINE. NO SIGNS OF DISTRESS/ SOB.
--- NOTE | 2020-08-26 07:15 | NUR ---
Patient resting comfortably in bed with no distress noted. Patient stable.
[2020-08-26 08:05] VITALS: BP 149/74
[2020-08-26 09:00] VITALS: BP 149/74
[2020-08-26 09:16] LABS: Basophils # (auto) 0 10 ^3/uL (0-0.2); Basophils % (auto) 0.1 % (0.0-2.0); Eosinophils # (auto) 0 10 ^3/uL (0-0.8); Eosinophils % (auto) 0.1 % (0.0-7.0); Hematocrit 35.8 % (36.0-46.0); Lymphocytes # (auto) 0.4 10 ^3/uL (0.4-5.4); Lymphocytes % (auto) 4.5 % (10.0-50.0); Mean Corpuscular Hemoglobin 27.4 pg (28.0-32.0); Mean Corpuscular Hgb Conc. 30.6 g/dL (32.0-36.0); Mean Corpuscular Volume 89.4 fL (80.0-100.0); Monocytes # (auto) 0.5 10 ^3/uL (0-1.3); Monocytes % (auto) 5.7 % (0.0-12.0); Neutrophils # (auto) 7.8 10 ^3/uL (1.6-8.6); Neutrophils % (auto) 89.6 % (37.0-80.0); Platelet Count (auto) 204 10^3/uL (140-450); Red Blood Cells 4.01 10^6/uL (4.0-5.20); Red Cell Distribution Width 17.2 % (11.8-14.3); White Blood Cell 8.8 10^3/uL (4.4-10.8)
[2020-08-26 09:43] LABS: Albumin 2.3 g/dL (3.4-5.0); Anion Gap 9 (5-15); BUN/Creatinine Ratio 29.2; Blood Urea Nitrogen 14 mg/dL (7-18); Carbon Dioxide 21 mmol/L (21-32); Chloride 113 mmol/L (98-107); GFR African American 160 mL/min; GFR Non-African American 133 mL/min; Glucose 102 mg/dL (74-106); Potassium 3.4 mmol/L (3.5-5.1); Sodium 143 mmol/L (136-145)
[2020-08-26 09:53] LABS: Alanine Aminotransferase 58 U/L (13-56); Alkaline Phosphatase 74 U/L (45-117); Aspartate Aminotransferase 63 U/L (15-37); Bilirubin, Total 0.7 mg/dL (0.2-1.0); Total Protein 5.2 g/dL (6.4-8.2)
[2020-08-26] MEDS: SODIUM CHLORIDE 0.9% 1,000 ML IV SCH ×3 (10:10→23:30)
[2020-08-26] MEDS: ZINC SULFATE 220mg CAP or TAB PO SCH (10:29)
[2020-08-26] MEDS: APIXABAN 5 MG TAB PO SCH ×2 (10:29→21:01)
[2020-08-26] MEDS: PANTOPRAZOLE 40 MG/10 ML VIAL INJ IV SCH (10:29)
[2020-08-26] MEDS: MULTIPLE VITAMIN TAB PO SCH (10:30)
[2020-08-26] MEDS: ASPirin 81 mg TAB PO SCH (10:30)
--- NOTE | 2020-08-26 10:30 | NUR ---
Scheduled medications given per order. Patient resting comfortably in bed at this time.
--- NOTE | 2020-08-26 10:54 | NUR ---
Pt is an alert but confused female that was residing in a [facility] prior to admission. Per daughter Peyton, pt resides at [facility] and is on service with [facility]. Pt's daughter has POA. Pt will be returning to facility and resuming with [facility] upon discharge. Transportation arrangements to be coordinated with hospice company and transport services when discharged. Addendum: 08/26/20 at 1056 by CARMEN ERICKSON Amended: Links added.
--- NOTE | 2020-08-26 11:15 | NUR ---
Nutrition Followup Note Wt 81.0kg Pt is alert but confused. Pt unable to answer any questions during rounds. Pt is s/p swallow eval by speech therapy with a pureed diet and no po intake yet per Rn note. Consider alternate nutrition if pt is unable to consume a po diet. Est energy needs [id number] kcal (20-25 kcal/kg BW 70.8kg) Est protein needs 57-71g (0.8-1g/kg BW 70.8kg) Will monitor and reassess prn. Labs: K 3.4L, Creat 0.48L, Alb 2.3L, Ca 8.0L BM: pt with 300 ml of stool 08/25 per Rn note Skin: BS 13 mod risk, full details in vp care management note PES: Partially resolved, pt diet adv to pureed with no intake yet. Inadequate oral intake r/t current medical condition aeb pt NPO Comments 1) Continue to monitor po status, labs, skin 2) refer pt to [facility] on Dc 3) Continue current plan of care Expected Outcomes/Goals: 1) Consider alternate nutrition if pt is unable to consume advanced diet 2) pt po intake >75% 3) f/u 3-5 days
[2020-08-26] MEDS: levoFLOXacin 500MG 100 ML IV SCH (12:07)
--- NOTE | 2020-08-26 12:08 | NUR ---
Scheduled IV abx given per order. Checked blood sugar: 82 mg/dl - no coverage required. Patient stable at this time.
[2020-08-26 12:10] VITALS: BP 143/74
--- NOTE | 2020-08-26 14:30 | NUR ---
Patient resting comfortably in bed with no distress noted.
--- NOTE | 2020-08-26 15:50 | NUR ---
Changed dressing on sacrum and right heel. Patient tolerated well.
[2020-08-26 16:15] VITALS: BP 141/81
--- NOTE | 2020-08-26 17:00 | NUR ---
Spoke to Peyton, daughter at [phone] regarding patient's pacemaker: placed on March 2020, geography head is [employer], and their ph# is [phone].
--- NOTE | 2020-08-26 17:50 | NUR ---
Checked blood sugar: 86 mg/dl - no coverage required. Patient stable.
--- NOTE | 2020-08-26 19:10 | NUR ---
Opening Shift Note Assumed care of patient, awake and alert x1 to person. Patient on 2L nasal cannula with no S/S of distress/SOB or pain. Suarez draining light yellow urine, ostomy with light brown stool present. Bed locked in the lowest position, side rails up X2, call light within reach. Instructed on POC and to call for assist PRN, will continue to monitor for changes Q1hr and PRN.
[2020-08-26 20:00] VITALS: BP 163/66
[2020-08-27] VITALS (7 sets, daily range): BP systolic 150–192; BP diastolic 66–87
--- NOTE | 2020-08-27 01:00 | NUR ---
IV LEFT WRIST IV D/C USING CLEAN TECHNIQUE. CATHETER REMOVED INTACT, DRESSING APPLIED WITH NO DISTRESS AT THIS TIME.
--- NOTE | 2020-08-27 01:21 | NUR ---
IV insertion IV access obtained, via clean sterile technique by inserting gauge catheter at RIGHT FOREARM after 2 attempts. IV secured properly. No trauma to site. Patient tolerated procedure well.
[2020-08-27] MEDS: hydrALAZINE HCL 20 MG/ML VL IV PRN (04:33)
[2020-08-27] MEDS: SODIUM CHLORIDE 0.9% 1,000 ML IV SCH (04:59)
[2020-08-27] MEDS: SODIUM CHLOR 0.9% PF (SALINE LOCK) 10ML VIAL/SYR IV SCH ×3 (04:59→22:00)
[2020-08-27] MEDS: ACCU-CHEK COMFORT CURVE STRIP VI SCH ×4 (05:42→22:00)
[2020-08-27] MEDS: InsuLIN REG 1unit/0.01ml Soln (100units/ml) SC SCH ×4 (05:42→22:00)
--- NOTE | 2020-08-27 07:20 | NUR ---
CLOSING NOTE CARE ENDORSED TO DAY SHIFT RN. PATIENT RESTING IN THE HIGH FOWLERS POSITION. COLOSTOMY HAS MILD BROWN STOOL, SERRANO DRAINING YELLOW URINE. NO SIGNS OF DISTRESS/ SOB AT THIS TIME.
[2020-08-27 07:52] LABS: Basophils # (auto) 0 10 ^3/uL (0-0.2); Eosinophils # (auto) 0 10 ^3/uL (0-0.8); Lymphocytes # (auto) 0.3 10 ^3/uL (0.4-5.4); Lymphocytes % (auto) 3.3 % (10.0-50.0); Monocytes # (auto) 0.4 10 ^3/uL (0-1.3)
[2020-08-27 07:54] LABS: Potassium 3.1 mmol/L (3.5-5.1)
[2020-08-27 08:01] LABS: Albumin 2.3 g/dL (3.4-5.0); BUN/Creatinine Ratio 35.9; Bilirubin, Total 0.5 mg/dL (0.2-1.0); Calcium 8.1 mg/dL (8.5-10.1); Total Protein 5.5 g/dL (6.4-8.2)
[2020-08-27 08:04] LABS: Basophils % (auto) 0.1 % (0.0-2.0); Eosinophils % (auto) 0.1 % (0.0-7.0); Hematocrit 34.3 % (36.0-46.0); Mean Corpuscular Hemoglobin 27.2 pg (28.0-32.0); Mean Corpuscular Volume 84.8 fL (80.0-100.0); Monocytes % (auto) 4.1 % (0.0-12.0); Neutrophils # (auto) 8.9 10 ^3/uL (1.6-8.6); Neutrophils % (auto) 92.4 % (37.0-80.0); Platelet Count (auto) 233 10^3/uL (140-450); Red Blood Cells 4.05 10^6/uL (4.0-5.20); Red Cell Distribution Width 17.3 % (11.8-14.3); White Blood Cell 9.7 10^3/uL (4.4-10.8)
[2020-08-27] MEDS: APIXABAN 5 MG TAB PO SCH ×2 (10:25→22:00)
[2020-08-27] MEDS: ZINC SULFATE 220mg CAP or TAB PO SCH (10:25)
[2020-08-27] MEDS: MULTIPLE VITAMIN TAB PO SCH (10:25)
[2020-08-27] MEDS: ASPirin 81 mg TAB PO SCH (10:25)
[2020-08-27] MEDS: PANTOPRAZOLE 40 MG/10 ML VIAL INJ IV SCH (10:25)
--- NOTE | 2020-08-27 10:25 | NUR ---
Scheduled medications given per order. Patient stable at this time.
--- NOTE | 2020-08-27 11:00 | NUR ---
Patient refused P.T. Nursing notified.
--- NOTE | 2020-08-27 11:24 | NUR ---
Checked blood sugar: 102 mg/dl - no coverage required. Patient resting quietly in bed with no distress noted; stable.
[2020-08-27] MEDS ORDERED: amLODIPine BESYLATE 5 MG TAB PO ONE (12:00)
[2020-08-27] MEDS ORDERED: METOPROLOL TARTRATE 50 MG TAB PO ONE (12:00)
[2020-08-27] MEDS ORDERED: FLUCONAZOLE 100 MG TAB PO ONE (12:00)
[2020-08-27] MEDS: levoFLOXacin 500MG 100 ML IV SCH (12:42)
--- NOTE | 2020-08-27 12:49 | NUR ---
Scheduled IV abx and ordered po medications given. Patient stable at this time.
--- NOTE | 2020-08-27 13:36 | NUR ---
IV site flushed and hep locked. Patient taken in stable condition to Nuc Med Dept for VQ scan.
--- NOTE | 2020-08-27 13:58 | NUR ---
Patient returned to unit in stable condition.
--- NOTE | 2020-08-27 17:15 | NUR ---
Checked blood sugar: 92 mg/dl - no coverage required. Patient stable at this time.
--- NOTE | 2020-08-27 18:20 | NUR ---
Patient resting comfortably in bed with no distress noted. Patient stable throughout shift.
--- NOTE | 2020-08-27 19:10 | NUR ---
MRI MRI is scheduled for this Tuesday08-29-20 at noon: earliest time for Rep from [employer] to come and put implant in MRI mode. Info endorsed to night nurse.
[2020-08-27] MEDS: METOPROLOL TARTRATE 50 MG TAB PO SCH (22:00)
[2020-08-28 05:06] VITALS: BP 145/66
[2020-08-28] MEDS: InsuLIN REG 1unit/0.01ml Soln (100units/ml) SC SCH ×2 (05:50→11:30)
[2020-08-28] MEDS: SODIUM CHLOR 0.9% PF (SALINE LOCK) 10ML VIAL/SYR IV SCH (05:50)
[2020-08-28] MEDS: ACCU-CHEK COMFORT CURVE STRIP VI SCH ×2 (05:51→12:26)
[2020-08-28 08:00] VITALS: BP 149/74
[2020-08-28 09:00] VITALS: BP 149/74
--- NOTE | 2020-08-28 09:43 | NUR ---
Family updated on pt status DAUGHTER FRANSISCO of [facility] G[facility] updated on patient's status and condition. All questions and concerns addressed. verbalized understanding.
[2020-08-28] MEDS ORDERED: amLODIPine BESYLATE 5 MG TAB PO SCH (10:00)
[2020-08-28] MEDS ORDERED: FLUCONAZOLE 100 MG TAB PO SCH (10:00)
[2020-08-28] MEDS ORDERED: POTASSIUM EFFERVESENT TAB 25 MEQ PO ONE (10:15)
[2020-08-28] MEDS: ASPirin 81 mg TAB PO SCH (10:17)
[2020-08-28] MEDS: PANTOPRAZOLE 40 MG/10 ML VIAL INJ IV SCH (10:17)
[2020-08-28] MEDS: METOPROLOL TARTRATE 50 MG TAB PO SCH (10:18)
[2020-08-28] MEDS: APIXABAN 5 MG TAB PO SCH (10:19)
--- NOTE | 2020-08-28 12:04 | NUR ---
D/C Planning Regarding social service consult for patient to resume service with [facility]. Faxed clinical information to [facility]. Per Angela with [facility] they will resume care for patient upon d/c day. Transportation has been arranged with [employer] transportation between 13:00-14:00 via gurney with oxygen. Informed RN Guillermo
[2020-08-28] MEDS: levoFLOXacin 500MG 100 ML IV SCH (12:41)
[2020-08-28 13:00] VITALS: BP 133/61
--- NOTE | 2020-08-28 14:30 | NUR ---
pt refused DC wound photos
--- NOTE | 2020-08-28 15:00 | NUR ---
Discharge instructions given as ordered. Encourage to follow up with PMD as instructed. All questions and concerns addressed. IV removed with catheter intact, pressure dressing applied. Telemetry unit returned to ICU. Patient taken to transport via stretcher with all personal belongings, accompanied by staff. No distress noted at time of departure.
== END 2020-08-28 14:50 | disposition hospice, home (50) | DRG 871 ==
LOC: EDBD 21:29 → EDSEX 21:29 → ER 21:29 → TELE 21:30 → TELE-WESTW 08-23 17:50
PROVIDERS: ADMIT Nurse Practitioner Family; ATTEND Family Medicine
DX: A41.9 Sepsis, unspecified organism (principal); J18.9 Pneumonia, unspecified organism; G93.41 Metabolic encephalopathy; B37.1 Pulmonary candidiasis; I82.413 Acute embolism and thrombosis of femoral vein, bilateral; R65.20 Severe sepsis without septic shock; F03.90 Unspecified dementia, unspecified severity, without behavioral disturbance, psychotic disturbance, mood disturbance, and anxiety; F32.9 Major depressive disorder, single episode, unspecified; Z51.5 Encounter for palliative care; E03.9 Hypothyroidism, unspecified; E87.6 Hypokalemia; E86.0 Dehydration; I10 Essential (primary) hypertension; R73.9 Hyperglycemia, unspecified; K80.20 Calculus of gallbladder without cholecystitis without obstruction; F17.200 Nicotine dependence, unspecified, uncomplicated; I25.10 Atherosclerotic heart disease of native coronary artery without angina pectoris; I25.2 Old myocardial infarction; L89.619 Pressure ulcer of right heel, unspecified stage; L89.150 Pressure ulcer of sacral region, unstageable; N30.90 Cystitis, unspecified without hematuria; Z20.828 Contact with and (suspected) exposure to other viral communicable diseases; Z79.01 Long term (current) use of anticoagulants; Z79.899 Other long term (current) drug therapy; Z82.3 Family history of stroke; Z82.49 Family history of ischemic heart disease and other diseases of the circulatory system; Z82.5 Family history of asthma and other chronic lower respiratory diseases; Z90.49 Acquired absence of other specified parts of digestive tract; Z88.0 Allergy status to penicillin; Z93.3 Colostomy status; Z86.718 Personal history of other venous thrombosis and embolism; Z86.711 Personal history of pulmonary embolism; Z88.2 Allergy status to sulfonamides; Z88.5 Allergy status to narcotic agent; Z88.8 Allergy status to other drugs, medicaments and biological substances; Z68.30 Body mass index [BMI] 30.0-30.9, adult
CPT/HCPCS: 36415; 36600; 51702; 70450; 71045; 71260; 72125; 74177; 74220; 78582; 80053; 80061; 80202; 80307; 80320; 81001; 82565; 82607; 82728; 82746; 82805; 82962; 83036; 83605; 83735; 84443; 85025; 85379; 85610; 85730; 86141; 87040; 87081; 87086; 87088; 87186; 87426; 92610; 93306; 93886; 96365; 96366; 96367; 96375; 97163; 99291; C9113; G0378; J1100; J1815; J1956; J3480; J3490

== ENCOUNTER 2022-12-12 18:30 | Emergency (ER) | payer OTHER ==
[~2022-12-12] VITALS: Ht 162.6 cm; Wt 70.0 kg
[~2022-12-12 18:30] MED LIST changes: -CLOP75TA41 PO; +CLOP75TA70 PO; +LOSA25TA2 PO; -LOSA25TA8 PO
[2022-12-12] MEDS ORDERED: LIDOCAINE 1% (LOCAL ANESTH.) PF 5ml SDV ID ONE (18:45)
[2022-12-12] MEDS ORDERED: BACITRACIN TOP OINT 1 UD PKG TOP ONE (18:45)
[2022-12-12 19:24] LABS: Basophils # (auto) 0 10 ^3/uL (0-0.2); Basophils % (auto) 0.2 % (0.0-2.0); Eosinophils # (auto) 0.1 10 ^3/uL (0-0.8); Eosinophils % (auto) 1.6 % (0.0-7.0); Hematocrit 36.2 % (36.0-46.0); Hemoglobin 11.7 g/dL (12.2-16.2); Lymphocytes # (auto) 0.8 10 ^3/uL (0.4-5.4); Lymphocytes % (auto) 9.2 % (10.0-50.0); Mean Corpuscular Hemoglobin 28.9 pg (28.0-32.0); Mean Corpuscular Hgb Conc. 32.4 g/dL (32.0-36.0); Mean Corpuscular Volume 89.2 fL (80.0-100.0); Monocytes # (auto) 0.4 10 ^3/uL (0-1.3); Monocytes % (auto) 4.9 % (0.0-12.0); Neutrophils # (auto) 6.9 10 ^3/uL (1.6-8.6); Neutrophils % (auto) 84.1 % (37.0-80.0); Nucleated Red Blood Cells % 0.2 %; Red Blood Cells 4.06 10^6/uL (4.0-5.20); Red Cell Distribution Width 16.2 % (11.8-14.3); White Blood Cell 8.2 10^3/uL (4.4-10.8)
[2022-12-12] MEDS ORDERED: LIDOCAINE 1% HCL (LOCAL ANESTH.) INJ 20ML MDV ONE (19:30)
[2022-12-12 19:44] LABS: Albumin 2.8 g/dL (3.4-5.0); BUN/Creatinine Ratio 25.8 (10.0-20.0); Calcium 8.5 mg/dL (8.5-10.1); Potassium 4.1 mmol/L (3.5-5.1)
[2022-12-12 19:47] LABS: Bilirubin, Total 0.2 mg/dL (0.2-1.0); Total Protein 6.8 g/dL (6.4-8.2)
[2022-12-12] MEDS ORDERED: HYDROcodone-ACET 5/325MG TAB PO ONE (21:15)
[2022-12-13] MEDS ORDERED: HALOPERIDOL LACTATE 5 MG/ML INJ VIAL IM ONE ×2 (00:15→01:30)
[2022-12-13] MEDS ORDERED: LORazepam 2MG/ML-1ML VIAL IV ONE ×2 (00:15→01:30)
[2022-12-13 08:00] VITALS: BP 151/60
== END 2022-12-13 15:46 | disposition home or self-care (01) ==
LOC: EDBD 18:30 → ER 18:30
DX: S42.212A Unspecified displaced fracture of surgical neck of left humerus, initial encounter for closed fracture (principal); S01.81XA Laceration without foreign body of other part of head, initial encounter; R53.1 Weakness; W18.00XA Striking against unspecified object with subsequent fall, initial encounter; Y93.89 Activity, other specified; Y92.89 Other specified places as the place of occurrence of the external cause; Y99.8 Other external cause status
CPT/HCPCS: 12015; 36415; 70450; 72125; 73030; 80053; 85025; 93005; 96372; 96374; 96376; 99285; J1630; J2001; J2060